=== PATIENT | female | born 1965 | race Caucasian/White ===

== ENCOUNTER 2016-04-08 19:28 | Emergency (ER) | payer BC ==
[~2016-04-08] VITALS: Ht 167.6 cm; Wt 72.6 kg
[~2016-04-08 19:28] MED LIST: ALPR1TAB2 PO; ALPR1TAB6 PO; CYAN10005 PO; D-ME118S2 PO; DIBU28OI RC; DICL100G24 TP; DOCU100T5 PO; ERYT1OIN6 PO; FENT1PAT91 TP; META800T21 PO; MULT1TAB52 PO; ONDA4TAB7 PO; ONDA8TAB12 PO; OXYC10TA PO; OXYC10TA32 PO; OXYC15TA60 PO; OXYC5TAB88 PO; PANT40TA3 PO; PANT40TA5 PO; POLY17PO3 PO; PRAM28.3 RC; PRED-220 PO; PRED5TAB19 PO; PROC10TA57 PO; SERT25TA PO; TEMA15CA6 PO; TEMA30CA PO; VENTOLIN HFA18 GM IH; ZOLP10TA PO
[2016-04-08 19:40] VITALS: BP 165/102
[2016-04-08] MEDS ORDERED: LORAZEPAM 2 MG/ML VIAL IV ONE (20:00)
[2016-04-08] MEDS ORDERED: IV NORMAL SALINE 1000ML BAG 1,000 ML IV ONE (20:30)
--- NOTE | 2016-04-08 21:03 | PHYS DOC ---
Past Medical History Past Medical History: Anxiety, Cancer, Other Additional Past Medical Histor: "HEART BLOCKAGES",SVT PT REPORTS CHEMO AND RADIATION R/O LUNG CA, ARRYTHMIA Past Surgical History: Angioplasty, Appendectomy, Cholecystectomy, Hysterectomy , Other Additional Past Surgical Histo: cardiac ablation, craniotomy,PART LEFT LUNG REMOVAL R/T CANCER Alcohol Use: None Drug Use: None Adult General Chief Complaint Chief Complaint: MECHANICAL FALL HPI HPI 51-year-old female with multiple medical problems states she's fallen a couple times over the last 2 days and has some left shoulder and left wrist pain. She also has some chronic pain when she exhales. She states it's not resolved with her OxyContin that she takes on a routine basis at home. [] Review of Systems Review of Systems Constitutional: Denies fever or chills [] Eyes: Denies change in visual acuity, redness, or eye pain [] HENT: Denies nasal congestion or sore throat [] Respiratory: Denies cough or shortness of breath [] Cardiovascular: No additional information not addressed in HPI [] GI: Denies abdominal pain, nausea, vomiting, bloody stools or diarrhea [] : Denies dysuria or hematuria [] Musculoskeletal: Per history of present illness [] Integument: Denies rash or skin lesions [] Neurologic: Denies headache, focal weakness or sensory changes [] Endocrine: Denies polyuria or polydipsia [] Current Medications Current Medications Current Medications Medications (Trade) Dose Ordered Sig/Kojo Start Time Stop Time Status Last Admin Dose Admin Lorazepam 2 mg 2 mg 1X ONCE 04/08/16 20:00 04/08/16 20:01 DC 04/08/16 20:11 2 MG Sodium Chloride (Iv Sodium Chloride 0.9% 1000ml Bag) 1,000 ml @ 1,000 mls/hr 1X ONCE 04/08/16 20:30 04/08/16 21:29 04/08/16 20:18 1,000 MLS/HR Allergies Allergies Allergies Coded Allergies Type Severity Reaction Last Updated Verified cyclobenzaprine Allergy Severe 11/26/14 Yes metoclopramide Adverse Reaction Severe tardive dyskinesia 11/26/14 Yes baclofen Adverse Reaction Intermediate hallucinations 11/26/14 Yes diphenhydramine Adverse Reaction Intermediate Palpitations, "hyperactivity" "heart races" 06/22/15 Yes Physical Exam Physical Exam Constitutional: Well developed, well nourished, no acute moderate distress, non- toxic appearance, pain is out of portion to her physical exam findings. [] HENT: Normocephalic, atraumatic, bilateral external ears normal, oropharynx moist, no oral exudates, nose normal. [] Eyes: PERRLA, EOMI, conjunctiva normal, no discharge. [] Neck: Normal range of motion, no tenderness, supple, no stridor. [] Cardiovascular:Heart rate regular rhythm, no murmur [] Lungs & Thorax: Bilateral breath sounds clear to auscultation [] Abdomen: Bowel sounds normal, soft, no tenderness, no masses, no pulsatile masses. [] Skin: Warm, dry, no erythema, no rash. [] Back: No tenderness, no CVA tenderness. [] Extremities: Left shoulder shows no abnormalities no deformities range of motion is limited secondary to pain. Left wrist is not swollen there is no deformity limited secondary to pain. [] Neurologic: Alert and oriented X 3, normal motor function, normal sensory function, no focal deficits noted. [] Psychologic: Extremely anxious and hyperventilating [] Current Patient Data Vital Signs Vital Signs Date Time Temp Pulse Resp B/P Pulse Ox O2 Delivery O2 Flow Rate FiO2 04/08/16 19:40 98.0 107 20 165/102 95 Room Air 98.0 EKG EKG [] Radiology/Procedures Radiology/Procedures [] Impressions: Left shoulder x-ray: Negative exam as interpreted by me Left wrist x-ray negative exam as interpreted by il Course & Med Decision Making Course & Med Decision Making Pertinent Labs and Imaging studies reviewed. (See chart for details) [ED course: Evaluation reveals an extremely anxious 51-year-old female with pain out of proportion to her physical exam findings. Her oxygen saturation on room air was mid 90s she was hyperventilating physical exam finding was essentially unremarkable initially she was given 2 mg of Ativan which did seem to calm her down some and then she was given a milligram of Dilaudid to help with her pain.] Patient is stable for discharge home Dragon Disclaimer Dragon Disclaimer This electronic medical record was generated, in whole or in part, using a voice recognition dictation system. Departure Departure Impression: Primary Impression: Anxiety Additional Impressions: Multiple falls Contusion of left shoulder Left wrist sprain Disposition: HOME, SELF-CARE Condition: IMPROVED Referrals: SARAH LOPEZ MD (PCP) Patient Instructions: Contusion, Fall Prevention and Home Safety, Pleurisy Additional Instructions: Thank you for allowing us to participate in your care today. Followup with your primary care physician in 3 days if your symptoms do not improve. Return to the emergency department you have any new or concerning findings. This should be evaluated by the primary care physician and any necessary consulting services for continued management within a few days after discharge. Return to emergency room if you have any new or concerning symptoms including but not limited to fever, chills, nausea, vomiting, intractable pain, any new rashes, chest pain, shortness of air, uncontrolled bleeding, difficulty breathing, and/or vision loss. You may have been prescribed medication that can change in your level of thinking and ability to operate machinery. These medications include hydrocodone and Ativan. Also, Benadryl has been known to do this as well. Be sure to check with your pharmacist and ask if the medications you've prescribed can affect your level of consciousness. I recommend not operating heavy machinery or driving while on medication such as these. Problem Qualifiers Additional Impressions: Contusion of left shoulder Encounter type: initial encounter Qualified Code: S40.012A - Contusion of left shoulder, initial encounter Left wrist sprain Encounter type: initial encounter Qualified Code: S63.502A - Unspecified sprain of left wrist, initial encounter LAURA CHOW DO Apr 08, 2016 21:03
[2016-04-08] MEDS ORDERED: HYDROMORPHONE 2 MG/ML VIAL. IV ONE (21:15)
--- NOTE | 2016-04-09 08:28 | RAD ---
Left shoulder, 3 views, 04/08/2016: History: Fall, pain No fracture or dislocation is identified. There is minimal degenerative change at the AC joint. Surgical clips are present left upper chest. A right-sided central venous catheter is in place. IMPRESSION: No acute bony abnormality is detected. Left wrist, 3 views, 04/08/2016: No acute fracture or dislocation is identified. There are mild degenerative changes at the wrist. There is mild diffuse soft tissue swelling.
[2016-04-10] MEDS ORDERED: OXYC30TA PO (18:25)
== END 2016-04-08 21:32 | disposition home or self-care (01) ==
LOC: ER 19:28
DX: S40.012A Contusion of left shoulder, initial encounter (principal); S63.502A Unspecified sprain of left wrist, initial encounter; F41.9 Anxiety disorder, unspecified; Z88.8 Allergy status to other drugs, medicaments and biological substances; W19.XXXA Unspecified fall, initial encounter; Y93.89 Activity, other specified; Y92.89 Other specified places as the place of occurrence of the external cause; Y99.8 Other external cause status
CPT/HCPCS: 73030; 73110; 96361; 96374; 96375; 99284; J1170; J2060; J7030

== ENCOUNTER 2016-06-06 06:54 | Day surgery (SDC) | payer BC ==
[~2016-06-06] VITALS: Ht 167.6 cm; Wt 66.2 kg
[~2016-06-06 06:54] MED LIST changes: +BUPIVACAINE MPF 0.5% 30 ML VIAL. ONE; +CEFAZOLIN 1GM IVPB FOR OMNI 50 ML IV PRN; +LIDOCAINE 1% 20 ML VIAL. ONE; +OXYC30TA PO
[2016-06-06] MEDS ORDERED: LIDOCAINE 1% 1 ML SYRINGE. ID PRN (07:00)
[2016-06-06] MEDS ORDERED: MORPHINE SULFATE 2 MG/ML DISP.SYRIN. IV PRN (07:00)
[2016-06-06] MEDS ORDERED: ONDANSETRON PF 4 MG/2 ML VIAL. IV PRN (07:00)
[2016-06-06] MEDS ORDERED: FENTANYL PF 100 MCG/2 ML VIAL. IV PRN (07:00)
[2016-06-06] MEDS ORDERED: PROCHLORPERAZINE 10 MG/2 ML VIAL. IV PRN (07:00)
[2016-06-06] MEDS ORDERED: IV RINGERS,LACTATED 1000ML 1,000 ML IV SCH (07:00)
--- NOTE | 2016-06-06 07:20 | DISCH ---
DISCHARGE INSTRUCTIONS Condition on Discharge Condition on Discharge: Stable Activity After Discharge Activity Instructions for Disc: Other, see below Bathing Instructions: Shower-keep dressing dry Weight Bearing Status after Di: Non weight bearing Diet after Discharge Diet after Discharge: Regular Wound Incision Care Wound/Incision Care: Ice to area for comfort, Keep wound/cast CDI, Keep wound elevated, Do not change dressing Contacting the DRReid after DC Call your doctor for: Concerns you may have Follow-Up Follow up with: Ramona Mei in 10-14 days Treatment/Equipment after DC Adaptive Equipment Issued: None MARQUES SLAUGHTER II, MD Jun 06, 2016 07:20
--- NOTE | 2016-06-06 07:21 | PDOC ---
BRIEF OPERATIVE NOTE Date: Jun 06, 2016 Pre-Op Diagnosis Malangulated closed L distal radius fracture Post-Op Diagnosis same Procedure Performed ORIF L fx Surgeon Nirmal Buckley Anesthesia Type: General Blood Loss 10mL Complications none MARQUES SLAUGHTER II, MD Jun 06, 2016 07:21
[2016-06-06] MEDS ORDERED: MIDAZOLAM HCL 2 MG/2 ML VIAL. ONE (07:25)
[2016-06-06] MEDS ORDERED: ONDANSETRON PF 4 MG/2 ML VIAL. ONE (07:25)
[2016-06-06] MEDS ORDERED: LIDOCAINE 2% 100 MG/5 ML DISP.SYRIN. ONE (07:25)
[2016-06-06] MEDS ORDERED: PROPOFOL 20 ML IV ONE (07:25)
[2016-06-06] MEDS ORDERED: DEXAMETHASONE SOD PHOS 20 MG/5 ML VIAL. ONE (07:25)
[2016-06-06] MEDS ORDERED: DESFLURANE 61 TO 120 MINUTES IH ONE (07:25)
[2016-06-06] MEDS ORDERED: FENTANYL PF 100 MCG/2 ML VIAL. ONE ×2 (07:26→08:33)
[2016-06-06] MEDS ORDERED: ESMOLOL 100 MG/10 ML VIAL. IV ONE (08:22)
[2016-06-06] MEDS: FENTANYL PF 100 MCG/2 ML VIAL. IV PRN ×4 (09:20→09:45)
[2016-06-06] MEDS ORDERED: ONDA4TAB10 SL (09:25)
[2016-06-06] MEDS: HYDROMORPHONE 2 MG/ML VIAL. IV PRN ×4 (09:26→10:15)
[2016-06-06] MEDS ORDERED: ACETAMINOPHEN INTRAVENOUS 100 ML IV PRN (09:45)
[2016-06-06] MEDS ORDERED: KETOROLAC TROMETHAMINE 30 MG/ML SYRINGE. IV PRN (09:45)
[2016-06-06] MEDS ORDERED: KETOROLAC TROMETHAMINE 30 MG/ML SYRINGE. ONE (09:50)
[2016-06-06] MEDS ORDERED: OXYCODONE IR 5 MG TABLET. PO ONE (10:00)
[2016-06-06 10:14] VITALS: BP 130/78
[2016-06-06] MEDS ORDERED: HEPARIN PF 500 UNIT/5 ML DISP.SYRIN. IV ONE (10:35)
[2016-06-06] MEDS ORDERED: HEPARIN PF 500 UNIT/5 ML DISP.SYRIN. IV PRN (11:15)
--- NOTE | 2016-06-06 11:54 | OP ---
DATE OF SURGERY: 06/06/2016 SURGEON: Jorge Slaughter MD. MANAGER DEVELOPMENTAL: Gloria Buckley. ANESTHESIA: General. PREOPERATIVE DIAGNOSIS: Malangulated closed left intraarticular distal radius fracture. POSTOPERATIVE DIAGNOSIS: Malangulated closed left intraarticular distal radius fracture. PROCEDURE PERFORMED: Open reduction and internal fixation of left distal radius fracture. TOURNIQUET TIME: 32 minutes. ESTIMATED BLOOD LOSS: 25 mL. COMPONENTS INSERTED: [employer] volar distal radius locking plate, standard width. COMPLICATIONS: None. REASON FOR PROCEDURE: The patient is a very pleasant 51-year-old female who sustained a fall onto an outstretched left upper extremity while roller skating with her grandchildren. She was seen and evaluated in our outpatient orthopedic surgery clinic, and I reviewed the imaging and exam findings and discussed the risks, benefits, and alternatives to surgery with her and she elected to proceed. DESCRIPTION OF PROCEDURE: The patient was greeted in the preoperative area by myself. Correct extremity was marked and verified. She was taken to the operative suite and antibiotics were started en route. Once in the OR, she was transferred gently supine to the OR table and secured to the bed with all pressure points padded and had a successful induction of general anesthesia. We then proceeded to place the tourniquet to her left upper arm and then prescrubbed her left upper extremity after removing the splint with chlorhexidine. We then proceeded to perform our usual sterile prep and draping. We then conducted a standard preoperative timeout. I then palpated and marked her radial artery and FCR tendon and made the skin incision in between these after exsanguinating the extremity with an Esmarch and insufflating the tourniquet to 250 mmHg. I dissected skin and subcutaneous tissue with tenotomies and cauterized bleeders with bipolar cautery. I identified the FCR tendon and incised her antebrachial fascia in line with the skin incision. I then bluntly dissected down to the pronator quadratus and used a needle tip electrocautery to transect this. I then used an elevator to remove the adherent soft tissue over her distal radius in anticipation of my plate application. I then performed a reduction maneuver consisting recreating the deformity, pulling longitudinal traction through digits 2 and 3 and direct pressure over the fracture fragment to reduce it. The C-arm confirmed a good fracture reduction under triplanar fluoroscopy. I then brought in my plate and sized and pinned this into place. I then placed two nonlocking screws into the distal fragment followed by filling the rest of the holes with locking screws. This opposed the plate to the fragment well. I then reduced the plate to the shaft which corrected some of the angulation again. I then secured the plate to the shaft with 2 nonlocking screws. I then took my final images confirming appropriate fracture reduction and hardware position without any articular violation. I then irrigated out the operative field then let the tourniquet down and cauterized a couple of bleeders with bipolar cautery. I then reapproximated the pronator quadratus with simple interrupted 2-0 Vicryl. Inverted interrupted 2-0 was used for subcutaneous tissue and 2-0 nylon in mattress fashion was used for skin. I then injected approximately 7 mL of local anesthetic mixture into the epifanio-incisional area ensuring extravascular placement. I then cleansed and dried the arm, placed Steri-Strips, Xeroform gauze, and sterile cast padding. I then fashioned a sugar-tong splint that was well padded and held the mold while it set. Prior to completion of wound closure, all counts were reported correct x 2. No complications. The patient tolerated the surgery well. At the conclusion of surgery, she was awakened from anesthesia, transferred gently supine to the recovery room cart and taken to PACU in stable and extubated condition. Postop plan is for be nonweightbearing x 6 weeks. She will remain in the splint for 2 weeks until we see her in clinic. JORGE SLAUGHTER MD DR: ADRYAN/lida JOB#: [id number] / [id number] CLEMENTINE
== END 2016-06-06 11:12 | disposition home or self-care (01) ==
LOC: SURG 06:54
PROVIDERS: ATTEND Orthopaedic Surgery Sports Medicine
DX: S52.572B Other intraarticular fracture of lower end of left radius, initial encounter for open fracture type I or II (principal); I48.91 Unspecified atrial fibrillation; J40 Bronchitis, not specified as acute or chronic; F41.9 Anxiety disorder, unspecified; F32.9 Major depressive disorder, single episode, unspecified; Z51.11 Encounter for antineoplastic chemotherapy; Z51.0 Encounter for antineoplastic radiation therapy; Z90.710 Acquired absence of both cervix and uterus; Z90.721 Acquired absence of ovaries, unilateral; Z90.49 Acquired absence of other specified parts of digestive tract; W19.XXXA Unspecified fall, initial encounter; Y93.51 Activity, roller skating (inline) and skateboarding; Y92.9 Unspecified place or not applicable; Y99.9 Unspecified external cause status
CPT/HCPCS: 25608; 76000; C1713; J0131; J0690; J1100; J1170; J1885; J2250; J2405; J2704; J3010; J3490; J0780

== ENCOUNTER 2016-06-27 15:57 | Inpatient (IN) | payer BC ==
[~2016-06-27] VITALS: Ht 167.6 cm; Wt 69.5 kg
[~2016-06-27 15:57] MED LIST changes: -BUPIVACAINE MPF 0.5% 30 ML VIAL. ONE; -CEFAZOLIN 1GM IVPB FOR OMNI 50 ML IV PRN; -LIDOCAINE 1% 20 ML VIAL. ONE; +ONDA4TAB10 SL
[2016-06-27] MEDS ORDERED: FENTANYL PF 100 MCG/2 ML VIAL. IV ONE (16:45)
[2016-06-27] MEDS ORDERED: CEFTRIAXONE SODIUM 1 GM in IV NORMAL SALINE 50ML 50 ML IV SCH (17:00)
[2016-06-27] MEDS: PHENAZOPYRIDINE 200 MG TABLET. PO PRN (17:22)
[2016-06-27] MEDS ORDERED: FENTANYL STANDARD PCA 30 ML IV PRN (17:30)
[2016-06-27] MEDS ORDERED: ZOLP10TA PO (17:38)
[2016-06-27 19:00] VITALS: BP 118/78
[2016-06-27] MEDS: IV NORMAL SALINE 1000ML BAG 1,000 ML IV SCH (19:01)
[2016-06-27] MEDS ORDERED: ALPRAZOLAM 1 MG TABLET PO PRN (21:30)
[2016-06-27] MEDS: ZOLPIDEM 5 MG TABLET. PO PRN (21:51)
[2016-06-27] MEDS: OXYCODONE IR 30 MG TABLET. PO PRN (21:52)
[2016-06-27 22:39] LABS: BILIRUBIN,URINE NEGATIVE (NEG); GLUCOSE,URINE NEGATIVE (NEG); PH,URINE 5.5; PROTEIN,URINE NEGATIVE (NEG-TRACE)
[2016-06-27 22:46] LABS: BACTERIA,URINE FEW /HPF (0-FEW); RBC,URINE 0 /HPF (0-2); SQUAMOUS EPITHELIAL CELL,UR OCC /LPF; WBC,URINE >40 /HPF (0-4)
[2016-06-27 23:00] VITALS: BP 95/61
--- NOTE | 2016-06-28 01:33 | HP ---
ADMIT DATE: 06/27/2016 HISTORY OF PRESENT ILLNESS: This is a 51-year-old white female who was seen in the office and she called saying that she is having davon hematuria. Her urine was bright pink or light red. She complained of severe pain. She lay on the examining table morning with pain, saying that she has such severe pain in her vaginal area. She was not sure whether the blood was from the urine or the vagina. She stated that she would have to void frequently and there would be blood on it. However, she has had a hysterectomy. A week ago, she had called saying that she has having urinary frequency. I gave her three days of Cipro 500 mg twice a day. She did not come to the office and no urinalysis or urine culture was carried out. This patient has had a very complex history. She has had carcinoma of the lung. She has had a lobectomy. 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 She was evaluated by Dr. Kitchen recently and found not to have any cancer. She has undergone chemotherapy. For some years, she has had what she calls pelvic pain. I am not quite sure what it is, but the previous physician had told her that she has pelvic pain and had on narcotics. Dr. Norm Leyva was seen her in these narcotics have been continued. However, the dose has been increased from 10 mg of oxycodone to now 30 mg of oxycodone. Despite taking the 30 mg every four hours, she ____ morning and pain in my office. She has had atrial tachycardia and has had an ablation. She has had no coronary artery disease. She has had myocardial perfusion. Imaging studies that have been normal and the left ventricular systolic function has been normal. Recently, she had a fracture of her wrist. She had to have a cast placed. She did not come to me for any more pain medications. I am not sure whether orthopedic surgeon gave her any more. She has never smoked. She does not take alcohol. PRESENT MEDICATIONS: 1. Alprazolam 1 mg q.6h. p.r.n. 2. Colace. 3. Zofran. 4. Oxycodone 30 mg every 4 hours. 5. Ambien 5 mg at night. PHYSICAL EXAMINATION: GENERAL: She was in pain and complained of severe pain despite IV fentanyl. VITAL SIGNS: The heart rate was 90 per minute and regular. The blood pressure is 120/80. The oxygen saturation on room air was 92%. LUNGS: Clear. HEART: The heart sounds are normal with no murmur or gallop. ABDOMEN: Soft. EXTREMITIES: There is no edema of the legs. IMPRESSION: 1. Hematuria. 2. Severe dysuria. 3. Probable low tolerance for pain. 4. History of pelvic pain. 5. History of carcinoma of the lung, cancer free for now. She will be given a fentanyl drip. Dr. Norm Leyva see her for the pain. She will be given Pyridium. She will be treated for the urinary tract infection with intravenous antibiotics. Urine culture will be obtained. We will also request a consultation from Urology. SARAH LOPEZ MD DR: MORRIS/lida JOB#: [id number] / [id number]
[2016-06-28] MEDS: OXYCODONE IR 30 MG TABLET. PO PRN ×5 (02:16→21:16)
[2016-06-28 03:06] VITALS: BP 106/72
[2016-06-28] MEDS: ONDANSETRON ODT 4 MG TAB.RAPDIS. PO PRN ×3 (04:23→20:15)
[2016-06-28] MEDS: DOCUSATE SODIUM 100 MG CAPSULE. PO SCH ×2 (05:27→17:51)
[2016-06-28] MEDS: PHENAZOPYRIDINE 200 MG TABLET. PO PRN ×2 (06:13→16:51)
[2016-06-28] MEDS: IV NORMAL SALINE 1000ML BAG 1,000 ML IV SCH ×2 (06:16→20:16)
--- NOTE | 2016-06-28 07:17 | PDOC ---
Provider Note Provider Note Urology: c/c gross hematuria Chart reviewed Plan: renal ultrasound ordered (CT-scan 04-10 show normal kidneys) will see patient later this afternoon after surgery PEDRO BLOOM DO Jun 28, 2016 07:17
[2016-06-28 07:50] VITALS: BP 99/58
[2016-06-28] MEDS ORDERED: ACETAMINOPHEN 325 MG TABLET. PO PRN (08:30)
[2016-06-28 09:00] VITALS: BP 92/64
[2016-06-28] MEDS ORDERED: FENTANYL PF 100 MCG/2 ML VIAL. IV ONE (09:00)
[2016-06-28] MEDS ORDERED: VANCOMYCIN PER PHARMACY MC PRN (09:00)
[2016-06-28] MEDS ORDERED: METOPROLOL TART IMMED RELEASE 25 MG TABLET. PO ONE (09:00)
--- NOTE | 2016-06-28 09:10 | PDOC ---
Infectious Disease Note ROS ROS GEN: Denies fevers, chills, sweats HEENT: Denies blurred vision, sore throat CV: Denies chest pain RESP: Denies shortness of air, cough GI: Denies n/v/d NEURO: Denies confusion, dizziness MSK: Denies weakness, joint pain/swelling Vital Sign Vital Signs Vital Signs Date Time Temp Pulse Resp B/P Pulse Ox O2 Delivery O2 Flow Rate FiO2 06/28/16 07:10 93 Room Air 06/28/16 03:06 98.2 113 20 106/72 98.2 Physical Exam PHYSICAL EXAM GENERAL: NAD, Alert HEENT: PERRL, OC/OP NECK: Supple, no JVD, no LN LUNGS: Clear HEART: S1S2, no gallop, no murmur ABD: Soft, NT, no organomegaly, no rebound EXT: No edema, no cyanosis BUSINESS APPLICATIONS SPECIALIST: Alert, oriented x 3, no focal neurologic deficit SKIN: No rash IV: ok Labs Lab Laboratory Tests Test 06/27/16 21:30 Urine Collection Type Unknown Urine Color [place] Urine Clarity Clear Urine pH 5.5 Urine Specific [place] <=1.005 Urine Protein Negativemg/dL (NEG-TRACE) Urine Glucose (UA) Negativemg/dL (NEG) Urine Ketones (Stick) Negativemg/dL (NEG) Urine Blood Small (NEG) Urine Nitrite (NEG) Urine Bilirubin Negative (NEG) Urine Urobilinogen Dipstick 1.0mg/dL (0.2 mg/dL) Urine Leukocyte Esterase Large (NEG) Urine RBC 0/HPF (0-2) Urine WBC >40/HPF (0-4) Urine Squamous Epithelial Cells Occ/LPF Urine Bacteria Few/HPF (0-FEW) Objective Assessment ? Sepsis Fever 102 Sinus congestion Hematuria ? failed Cipro Back pain N/V Plan Plan of Care Stat CBC/BMP/Lactic Flu screen CXR Blood cults ordered Add Meropenem/Vanc Azithromycin times one F/u labs/urine cult Await CT scan D/w # [id number] HERIBERTO TORRES MD Jun 28, 2016 09:10
[2016-06-28 09:14] LABS: BASO # 0.1 x10^3/uL (0.0-0.2); BASO % 0 % (0-3); EOS % 1 % (0-3); HEMATOCRIT 40.8 % (36.0-47.0); HEMOGLOBIN 13.1 g/dL (12.0-15.5); LYMPH # 1.3 x10^3/uL (1.0-4.8); LYMPH % 11 % (24-48); MEAN CORPUSCULAR HEMOGLOBIN 30 pg (25-35); MEAN CORPUSCULAR HGB CONC 32 g/dL (31-37); MEAN CORPUSCULAR VOLUME 92 fL (79-100); MONO % 7 % (0-9); NEUT % 81 % (31-73); PLATELET COUNT 209 x10^3/uL (140-400); RED BLOOD COUNT 4.42 x10^6/uL (3.50-5.40); RED CELL DISTRIBUTION WIDTH 13.2 % (11.5-14.5); WHITE BLOOD COUNT 11.9 x10^3/uL (4.0-11.0)
[2016-06-28 09:24] LABS: CALCIUM 8.5 mg/dL (8.5-10.1); CREATININE 0.7 mg/dL (0.6-1.0); GFR 87.9; POTASSIUM 4.8 mmol/L (3.5-5.1)
[2016-06-28] MEDS ORDERED: AZITHRMYCN 500MG IVPB FOR OMNI 250 ML IV ONE (09:30)
[2016-06-28] MEDS ORDERED: VANCOMYCIN 2 GM in IV NORMAL SALINE 500ML BAG 500 ML IV ONE (10:00)
[2016-06-28] MEDS: MEROPENEM 500 MG in IV NORMAL SALINE 50ML 50 ML IV SCH ×3 (10:19→22:53)
[2016-06-28 10:30] VITALS: BP 86/59
[2016-06-28 10:57] LABS: OBC FLU VALID
--- NOTE | 2016-06-28 11:00 | RAD ---
CT abdomen and pelvis without contrast History: Pelvic pain, hematuria. History of lung cancer. History of pelvic fracture. Comparison: CT abdomen pelvis 04/11/2016. Technique: Helical CT of the abdomen and pelvis was performed without intravenous or oral contrast. Axial, sagittal, and coronal reconstructions were obtained. One or more of the following individualized dose reduction techniques were utilized for the study: Automated exposure control Adjustment of mA and/or kV according to patient's size Use of iterative reconstruction technique. Findings: Evaluation of the solid organs is limited by lack of intravenous contrast. Evaluation of enteric structures may be limited by lack of oral contrast. Images of the lower chest demonstrate mild nonspecific groundglass opacity and mild areas of consolidation involving the left lower lobe. There is also linear consolidation involving the lingula which is favored to be atelectasis. Emphysema is seen. Liver, spleen, pancreas, and left adrenal gland are unremarkable. Right adrenal gland demonstrates a 2.0 cm a low-density lesion with Hounsfield units of -20, favored to represent a lipid rich adenoma. Aortic atherosclerosis is seen. Gallbladder is absent. Surgical clips are seen in left upper quadrant inferior to the spleen and adjacent to the splenic flexure. There is no evidence of bowel obstruction. No free air or free fluid is identified in the abdomen or pelvis. Appendix is not confidently identified, but no inflammation is seen adjacent to the cecum. The urinary bladder appears somewhat indistinct. There may be surrounding fat stranding. Evaluation of bladder wall is limited. Uterus is absent. There is evidence of a trace amount of free fluid in the posterior right hemipelvis. Bilateral kidneys and ureters are free of stone or obstruction. Limbus vertebra is seen at L4. Sacroplasty cement is seen. No suspicious osseous lesions are seen. Impression: 1. Emphysematous changes of lungs. Left lower lobe demonstrates nonspecific groundglass opacity and a mild amount consolidation, could be atelectasis versus airspace disease. Recommend correlation with respiratory symptoms. 2. No evidence of urinary stone. There is an irregular appearance to the urinary bladder, nonspecific. Consider cystitis. If cystitis is insufficient explanation for patient's hematuria and if there is concern for urinary mass, then CT urography could be performed. 3. Trace of free fluid in the right hemipelvis, abnormal in a female who has had previous total hysterectomy. Cause is not identified, however. 4. Bilateral sacroplasty. 5. Right adrenal adenoma.
[2016-06-28] MEDS ORDERED: NON FORMULARY ITEM (Zolpidem Tartrate (Ambien) 10 MG) PO PRN (14:15)
[2016-06-28] MEDS ORDERED: ONDANSETRON ODT 4 MG TAB.RAPDIS. PO PRN (14:15)
[2016-06-28] MEDS ORDERED: ACETAMINOPHEN 500 MG TABLET PO PRN (14:15)
[2016-06-28] MEDS ORDERED: ALPRAZOLAM 1 MG TABLET PO PRN (14:15)
[2016-06-28] MEDS ORDERED: OXYCODONE IR 30 MG TABLET. PO PRN (14:15)
[2016-06-28 14:30] VITALS: BP 91/62
--- NOTE | 2016-06-28 14:48 | PDOC ---
SUBJECTIVE Subjective Pelvic pain OBJECTIVE Objective Pt. C/O pelvic pain and hematuria Vital Signs Vital Signs Date Time Temp Pulse Resp B/P Pulse Ox O2 Delivery O2 Flow Rate FiO2 06/28/16 12:29 Nasal Cannula 3.0 06/28/16 11:10 94 Nasal Cannula 3.0 06/28/16 10:30 99.0 102 20 86/59 94 Nasal Cannula 3.0 99.0 06/28/16 10:04 92 Nasal Cannula 3.0 06/28/16 09:36 122 20 93 Nasal Cannula 3.0 06/28/16 09:00 125 20 92/64 88 Room Air 06/28/16 08:40 Room Air 06/28/16 08:15 Room Air 06/28/16 07:50 102.2 132 20 99/58 91 Room Air 102.2 06/28/16 07:10 93 06/28/16 06:01 93 Room Air 06/28/16 03:06 98.2 113 20 106/72 93 Room Air 98.2 06/28/16 02:16 93 Room Air 06/27/16 23:00 98.7 116 20 95/61 91 Room Air 98.7 06/27/16 21:52 92 Room Air 06/27/16 20:00 Room Air 06/27/16 19:36 92 Room Air 06/27/16 19:06 Room Air 06/27/16 19:00 97.5 90 20 118/78 91 Nasal Cannula 97.5 06/27/16 18:13 Room Air 06/27/16 17:52 Room Air 06/27/16 17:22 Room Air I & O Intake and Output 06/28/16 07:00 Intake Total 890 ml Output Total 850 ml Balance 40 ml Intake Oral 840 ml IV Total 50 ml Output Urine Total 850 ml # Voids 1 ASSESSMENT/PLAN Assessment/Plan Pt. with high fever and hematuria, pelvic pain-chronic. Taking 30mg oxycodone q 4hrs at home per pt. report [employer] fentanyl IV- consider change to 10mcg q 15 min(40mcg/hr) - wean as tolerated Problems: COMMENT Lab Laboratory Tests Test 06/27/16 21:30 06/28/16 08:50 06/28/16 09:05 06/28/16 09:45 Urine Collection Type Unknown Urine Color [place] Urine Clarity Clear Urine pH 5.5 Urine Specific [place] <=1.005 Urine Protein Negativemg/dL (NEG-TRACE) Urine Glucose (UA) Negativemg/dL (NEG) Urine Ketones (Stick) Negativemg/dL (NEG) Urine Blood Small (NEG) Urine Nitrite (NEG) Urine Bilirubin Negative (NEG) Urine Urobilinogen Dipstick 1.0mg/dL (0.2 mg/dL) Urine Leukocyte Esterase Large (NEG) Urine RBC 0/HPF (0-2) Urine WBC >40/HPF (0-4) Urine Squamous Epithelial Cells Occ/LPF Urine Bacteria Few/HPF (0-FEW) White Blood Count 11.9x10^3/uL (4.0-11.0) Red Blood Count 4.42x10^6/uL (3.50-5.40) Hemoglobin 13.1g/dL (12.0-15.5) Hematocrit 40.8% (36.0-47.0) Mean Corpuscular Volume 92fL (79-100) Mean Corpuscular Hemoglobin 30pg (25-35) Mean Corpuscular Hemoglobin Concent 32g/dL (31-37) Red Cell Distribution Width 13.2% (11.5-14.5) Platelet Count 209x10^3/uL (140-400) Neutrophils (%) (Auto) 81% (31-73) Lymphocytes (%) (Auto) 11% (24-48) Monocytes (%) (Auto) 7% (0-9) Eosinophils (%) (Auto) 1% (0-3) Basophils (%) (Auto) 0% (0-3) Neutrophils # (Auto) 9.7x10^3uL (1.8-7.7) Lymphocytes # (Auto) 1.3x10^3/uL (1.0-4.8) Monocytes # (Auto) 0.8x10^3/uL (0.0-1.1) Eosinophils # (Auto) 0.1x10^3/uL (0.0-0.7) Basophils # (Auto) 0.1x10^3/uL (0.0-0.2) Sodium Level 141mmol/L (136-145) Potassium Level 4.8mmol/L (3.5-5.1) Chloride Level 105mmol/L (98-107) Carbon Dioxide Level 29mmol/L (21-32) Anion Gap 7 (6-14) Blood Urea Nitrogen 6mg/dL (7-20) Creatinine 0.7mg/dL (0.6-1.0) Estimated GFR (Cockcroft-Gault) 87.9 Glucose Level 130mg/dL (70-99) Calcium Level 8.5mg/dL (8.5-10.1) Lactic Acid Level 2.1mmol/L (0.4-2.0) Influenza Type A Antigen Negative (NEGATIVE) Influenza Type B Antigen Negative (NEGATIVE) DAVID FLOOD MD Jun 28, 2016 14:48
--- NOTE | 2016-06-28 14:50 | PDOC2 ---
CONSULT Date of Consult Date of Consult DATE: 06/28/16 TIME: 14:34 Reason for Consult Reason for Consult: IM co mx Referring Physician Referring Physician: Keya Identification/Chief Complaint Chief Complaint pain pelvic area, chronic pain issues, gross hematuria History of Present Illness Reason for Visit: 51 y.o Female admitted for gross hematuria with pelvic pain, CHronic hx of pain , PAin mx on board. Urology likewise on board, CT scan does not show any stones , but emphysematous changes (hx of lung CA s/p lobectomy), possibly cystitis ( given irrgeular appearance of bladder wall), trace pelvic fluid with evidence of hysterrectomy, She was started on FEntanyl COMPRESSED GASES TESTER pump last night but only getting 10mcgs in 30 mins and pain is not adequately controlled. Pt actually ( per relay of staff), might even prefer pushes rather than constant gtt. Pt just was wheeled out for sono, to further eval the gross hematuria, UTI shows florid UTI, ID on case, lactate is mildly elevated at 2.1, WBC 11.9, flu is neg. BP on low side, also needed some O2 support while on COMPRESSED GASES TESTER - Past Medical History Cardiovascular: AFIB Pulmonary: Bronchitis CENTRAL NERVOUS SYSTEM: Other GI: Other Heme/Onc: Cancer Psych: Anxiety, Depression Musculoskeletal: Other Past Surgical History Past Surgical History: Appendectomy, Cholecystectomy, Tonsillectomy, Hysterectomy, Other (lobectomy for lung CA, adrenalectomy (metastatic spread)) Family History Family History: Other Social History Quit ALCOHOL: none Drugs: None Lives: with Family Current Medications Current Medications Current Medications Fentanyl Citrate (Fentanyl 2ml Vial) 50 mcg 1X ONCE IV Last administered on 17:22; Start 06/27/16 at 16:45; Stop 06/27/16 at 16:46; Status DC Phenazopyridine HCl 200 mg 200 mg PRN Q6HRS PRN PO URINARY PAIN Last administered on 06/28/16 06:13; Start 06/27/16 at 16:45 Ceftriaxone Sodium 1 gm/ Sodium Chloride 50 ml @ 100 mls/hr Q24H IV Last administered on 06/27/16 17:33; Start 06/27/16 at 17:00; Stop 06/28/16 at 08:58; Status DC Fentanyl Citrate 30 ml @ 0 mls/hr CONT PRN PRN IV PROTOCOL Last administered on 06/27/16 19:06; Start 06/27/16 at 17:30 Sodium Chloride (Iv Sodium Chloride 0.9% 1000ml Bag) 1,000 ml @ 100 mls/hr Q10H IV Last administered on 06/28/16 06:16; Start 06/27/16 at 18:45 Alprazolam (Xanax) 1 mg PRN Q6HRS PRN PO ANXIETY / AGITATION Last administered on 06/28/16 04:23; Start 06/27/16 at 21:30 Docusate Sodium (Colace) 100 mg [id number] PO ; Start 06/28/16 at 07:00 Ondansetron HCl (Zofran Odt) 8 mg PRN Q6HRS PRN PO NAUSEA/VOMITING Last administered on 06/28/16 08:39; Start 06/27/16 at 21:30 Zolpidem Tartrate (Ambien) 5 mg PRN QHS PRN PO INSOMNIA, MAY REPEAT IN 1HR Last administered on 06/27/16 21:51; Start 06/27/16 at 21:30 Oxycodone HCl (Roxicodone) 30 mg PRN Q4HRS PRN PO PAIN Last administered on 06/28 11:10; Start 06/27/16 at 21:30 Fentanyl Citrate (Fentanyl 2ml Vial) 50 mcg 1X ONCE IV Last administered on 08:40; Start 06/28/16 at 09:00; Stop 06/28/16 at 09:01; Status DC Metoprolol Tartrate (Lopressor) 25 mg 1X ONCE PO ; Start 06/28/16 at 09:00; Stop 06/28/16 at 09:01; Status DC Acetaminophen (Tylenol) 650 mg PRN Q6HRS PRN PO MILD PAIN / TEMP; Start at 08:30 Vancomycin HCl 1 each 1 each PRN DAILY PRN MC SEE COMMENTS Last administered on 06/28/16 13:25; Start 06/28/16 at 09:00; Stop 06/28/16 at 14:12; Status DC Meropenem 500 mg/ Sodium Chloride 50 ml @ 100 mls/hr Q6HRS IV Last administered on 06/28/16 10:19; Start 06/28/16 at 09:30 Azithromycin 250 ml @ 250 mls/hr 1X ONCE IV Last administered on 06/28/16t 11: 13; Start 06/28/16 at 09:30; Stop 06/28/16 at 10:29; Status DC Vancomycin HCl/ Sodium Chloride (Iv Sodium Chloride 0.9% 500ml Bag) 500 ml @ 250 mls/hr 1X ONCE IV Last administered on 06/28/16t 12:29; Start 06/28/16 at 10 :00; Stop 06/28/16 at 11:59; Status DC Vancomycin HCl 1 each 1 each 1X ONCE MC ; Start 06/29/16 at 23:30; Stop 06/29/16 at 23:30; Status DC Vancomycin HCl/ Sodium Chloride (Iv Sodium Chloride 0.9% 250ml) 250 ml @ 166.667 mls/hr Q12H IV ; Start 06/29/16 at 00:00; Stop 06/29/16 at 00:00; Status DC Acetaminophen (Tylenol) 500 mg PRN Q6HRS PRN PO MILD PAIN / TEMP; Start at 14:15 Linezolid (Zyvox) 600 mg BID PO ; Start 06/28/16 at 14:30 Alprazolam (Xanax) 1 mg PRN QID PRN PO ANXIETY / AGITATION; Start 06/28/16 at 14 :15 Ondansetron HCl (Zofran Odt) 4 mg PRN Q8HRS PRN PO nausea; Start 06/28/16 at 14: 15 Oxycodone HCl (Roxicodone) 15 mg PRN Q4HRS PRN PO PAIN; Start 06/28/16 at 14:15 Docusate Sodium (Colace) 200 mg PRN BID PRN PO CONSTIPATION; Start 06/28/16 at 21:00 Non-Formulary Medication 10 mg HS PRN PO INSOMNIA; Start 06/28/16 at 14:15; Status UNV Active Scripts Active Reported Ambien (Zolpidem Tartrate) 10 Mg Tablet 10 Mg PO HS PRN Zofran Odt (Ondansetron) 4 Mg Tab.rapdis 1 Tab SL Q8HRS Oxycodone Hcl 30 Mg Tablet 15 Mg PO PRN Q4HRS PRN Docusate Sodium 100 Mg Tablet 200 Mg PO BID PRN Alprazolam 1 Mg Tablet 1 Tab PO QID PRN Allergies Allergies: Coded Allergies: cyclobenzaprine (Verified Allergy, Severe, 06/06/16) dizziness, upset stomach, nightmares, sweats metoclopramide (Verified Adverse Reaction, Severe, tardive dyskinesia, ) baclofen (Verified Adverse Reaction, Intermediate, hallucinations, 06/06/16 ) diphenhydramine (Verified Adverse Reaction, Intermediate, Palpitations, "hyperactivity" "heart races", 06/06/16) ROS Review of System pelvic pain, abd pain, no emesis, change in BM, gross hematuria Physical Exam General: Alert, Oriented X3, Cooperative, No acute distress HEENT: Atraumatic, PERRLA Lungs: Clear to auscultation, Normal air movement Heart: Regular rate, Normal S1, Normal S2, No murmurs Abdomen: Normal bowel sounds, Soft, No tenderness Extremities: No clubbing, No cyanosis, No edema, Normal pulses, No tenderness/ swelling Skin: No rashes, No breakdown Neuro: Normal gait, Normal speech, Normal tone, Sensation intact, Reflexes 2+ Psych/Mental Status: Mental status NL, Mood NL MUSCULOSKELETAL: No joint tenderness Vitals VITALS Vital Signs Date Time Temp Pulse Resp B/P Pulse Ox O2 Delivery O2 Flow Rate FiO2 06/28/16 12:29 Nasal Cannula 3.0 06/28/16 11:10 94 06/28/16 10:30 99.0 102 20 86/59 99.0 Labs Labs Laboratory Tests Test 06/27/16 21:30 06/28/16 08:50 06/28/16 09:05 06/28/16 09:45 Urine Collection Type Unknown Urine Color [place] Urine Clarity Clear Urine pH 5.5 Urine Specific [place] <=1.005 Urine Protein Negativemg/dL (NEG-TRACE) Urine Glucose (UA) Negativemg/dL (NEG) Urine Ketones (Stick) Negativemg/dL (NEG) Urine Blood Small (NEG) Urine Nitrite (NEG) Urine Bilirubin Negative (NEG) Urine Urobilinogen Dipstick 1.0mg/dL (0.2 mg/dL) Urine Leukocyte Esterase Large (NEG) Urine RBC 0/HPF (0-2) Urine WBC >40/HPF (0-4) Urine Squamous Epithelial Cells Occ/LPF Urine Bacteria Few/HPF (0-FEW) White Blood Count 11.9x10^3/uL (4.0-11.0) Red Blood Count 4.42x10^6/uL (3.50-5.40) Hemoglobin 13.1g/dL (12.0-15.5) Hematocrit 40.8% (36.0-47.0) Mean Corpuscular Volume 92fL (79-100) Mean Corpuscular Hemoglobin 30pg (25-35) Mean Corpuscular Hemoglobin Concent 32g/dL (31-37) Red Cell Distribution Width 13.2% (11.5-14.5) Platelet Count 209x10^3/uL (140-400) Neutrophils (%) (Auto) 81% (31-73) Lymphocytes (%) (Auto) 11% (24-48) Monocytes (%) (Auto) 7% (0-9) Eosinophils (%) (Auto) 1% (0-3) Basophils (%) (Auto) 0% (0-3) Neutrophils # (Auto) 9.7x10^3uL (1.8-7.7) Lymphocytes # (Auto) 1.3x10^3/uL (1.0-4.8) Monocytes # (Auto) 0.8x10^3/uL (0.0-1.1) Eosinophils # (Auto) 0.1x10^3/uL (0.0-0.7) Basophils # (Auto) 0.1x10^3/uL (0.0-0.2) Sodium Level 141mmol/L (136-145) Potassium Level 4.8mmol/L (3.5-5.1) Chloride Level 105mmol/L (98-107) Carbon Dioxide Level 29mmol/L (21-32) Anion Gap 7 (6-14) Blood Urea Nitrogen 6mg/dL (7-20) Creatinine 0.7mg/dL (0.6-1.0) Estimated GFR (Cockcroft-Gault) 87.9 Glucose Level 130mg/dL (70-99) Calcium Level 8.5mg/dL (8.5-10.1) Lactic Acid Level 2.1mmol/L (0.4-2.0) Influenza Type A Antigen Negative (NEGATIVE) Influenza Type B Antigen Negative (NEGATIVE) Laboratory Tests Test 06/27/16 21:30 06/28/16 08:50 06/28/16 09:05 06/28/16 09:45 Urine Collection Type Unknown Urine Color [place] Urine Clarity Clear Urine pH 5.5 Urine Specific [place] <=1.005 Urine Protein Negativemg/dL (NEG-TRACE) Urine Glucose (UA) Negativemg/dL (NEG) Urine Ketones (Stick) Negativemg/dL (NEG) Urine Blood Small (NEG) Urine Nitrite (NEG) Urine Bilirubin Negative (NEG) Urine Urobilinogen Dipstick 1.0mg/dL (0.2 mg/dL) Urine Leukocyte Esterase Large (NEG) Urine RBC 0/HPF (0-2) Urine WBC >40/HPF (0-4) Urine Squamous Epithelial Cells Occ/LPF Urine Bacteria Few/HPF (0-FEW) White Blood Count 11.9x10^3/uL (4.0-11.0) Red Blood Count 4.42x10^6/uL (3.50-5.40) Hemoglobin 13.1g/dL (12.0-15.5) Hematocrit 40.8% (36.0-47.0) Mean Corpuscular Volume 92fL (79-100) Mean Corpuscular Hemoglobin 30pg (25-35) Mean Corpuscular Hemoglobin Concent 32g/dL (31-37) Red Cell Distribution Width 13.2% (11.5-14.5) Platelet Count 209x10^3/uL (140-400) Neutrophils (%) (Auto) 81% (31-73) Lymphocytes (%) (Auto) 11% (24-48) Monocytes (%) (Auto) 7% (0-9) Eosinophils (%) (Auto) 1% (0-3) Basophils (%) (Auto) 0% (0-3) Neutrophils # (Auto) 9.7x10^3uL (1.8-7.7) Lymphocytes # (Auto) 1.3x10^3/uL (1.0-4.8) Monocytes # (Auto) 0.8x10^3/uL (0.0-1.1) Eosinophils # (Auto) 0.1x10^3/uL (0.0-0.7) Basophils # (Auto) 0.1x10^3/uL (0.0-0.2) Sodium Level 141mmol/L (136-145) Potassium Level 4.8mmol/L (3.5-5.1) Chloride Level 105mmol/L (98-107) Carbon Dioxide Level 29mmol/L (21-32) Anion Gap 7 (6-14) Blood Urea Nitrogen 6mg/dL (7-20) Creatinine 0.7mg/dL (0.6-1.0) Estimated GFR (Cockcroft-Gault) 87.9 Glucose Level 130mg/dL (70-99) Calcium Level 8.5mg/dL (8.5-10.1) Lactic Acid Level 2.1mmol/L (0.4-2.0) Influenza Type A Antigen Negative (NEGATIVE) Influenza Type B Antigen Negative (NEGATIVE) Assessment/Plan Assessment/Plan 1. GRoss hematuria 2. Pelvic pain 3. Acute on chronic pain 4. UTI, SIRS POA, no sepsis 5. Elevated lactate, flu negative, leukocytosis 6. Hx lung CA with lobectomy 7. 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 Emphysematous lung changes 9. Possibly cystitis 10. Small amt pelvic fluid PLAn: REsume home meds including Oxy IR Would lean towards doing fentanyl pushes instead of gtt simone given hypoxia and low bP O2 support prn Await US results Follow pain mx and urology recs HH dennise IVF inc to 100cc.hr given hypotension Will follow along FREEDOM Thomas RN, MD Jun 28, 2016 14:50
[2016-06-28] MEDS: FENTANYL PF 100 MCG/2 ML VIAL. IV PRN ×3 (15:19→23:45)
[2016-06-28] MEDS: LINEZOLID 600 MG TABLET PO SCH ×2 (15:21→20:15)
--- NOTE | 2016-06-28 15:21 | RAD ---
Exam: PA and lateral chest radiograph History: Fever, cough, congestion. Comparison: 04/10/2016. Findings: Cardiomediastinal silhouette is within normal limits for size. Mild patchy density is seen involving the left lung base. No pleural effusion is seen. Emphysematous changes of lungs are seen. Right chest port and catheter are noted. Impression: 1. Mild left basilar density, could be atelectasis versus developing airspace disease. 2. Emphysema.
--- NOTE | 2016-06-28 15:33 | RAD ---
Renal ultrasound, 06/28/2016: History: Severe flank pain with hematuria The right kidney measures 10.2 cm in length while the left kidney measures 10.1 cm. There is no evidence of hydronephrosis or a renal mass. The renal parenchymal echogenicity is within normal limits. No abnormal perinephric process is seen. Limited views of the partially filled urinary bladder show no abnormality. IMPRESSION: No significant renal abnormality is detected.
[2016-06-28] MEDS ORDERED: MORPHINE SULFATE 4 MG/ML DISP.SYRIN. IV PRN (16:30)
[2016-06-28 19:00] VITALS: BP 94/58
[2016-06-28] MEDS ORDERED: LIDOCAINE (700MG/PATCH) PATCH. TD SCH (19:00)
--- NOTE | 2016-06-28 19:12 | PDOC ---
Provider Note Provider Note Urology: Consult dictated PEDRO BLOOM DO Jun 28, 2016 19:12
[2016-06-28] MEDS ORDERED: DOCUSATE SODIUM 100 MG CAPSULE. PO PRN (21:00)
--- NOTE | 2016-06-28 22:24 | PDOC ---
Provider Note Provider Note Spiked temperature of 102.2 this morning. Afebrile at present. She continues to complain and cry with pain in the back and in the pelvic area. She felt that the lidocaine patches were causing her to have spasms and wanted it removed. It is difficult to know where exactly her pain is located. Continues to pass pink urine. Could be due to the medication rather than hematuria. Encouraged her to use incentive spirometry. On broad spectrum coverage. Await urine culture report. Also await consultation from Dr. Calles. She needs to have occupational therapy for recent fracture wrist. SARAH LOPEZ MD Jun 28, 2016 22:24
[2016-06-28] MEDS ORDERED: DIAZEPAM 10 MG/2 ML DISP.SYRIN. IV PRN (22:30)
[2016-06-28] MEDS ORDERED: DIAZEPAM 5 MG TABLET PO SCH (22:30)
[2016-06-28] MEDS ORDERED: DIAZEPAM 5 MG TABLET PO ONE (22:45)
[2016-06-28] MEDS: AA 4.25%/CALCIUM/LYTES/D5W 1,000 ML IV SCH (22:54)
[2016-06-29] VITALS (7 sets, daily range): BP systolic 96–133; BP diastolic 59–77
[2016-06-29] MEDS ORDERED: VANCOMYCIN 1.25 GM in IV NORMAL SALINE 250ML 250 ML IV SCH ×2
[2016-06-29] MEDS: FENTANYL PF 100 MCG/2 ML VIAL. IV PRN ×3 (01:44→19:25)
--- NOTE | 2016-06-29 01:56 | CONS ---
DATE OF CONSULTATION: 06/28/2016 PATIENT'S ROOM: 519 REQUESTING PHYSICIAN: Dr. Laura. REASON FOR CONSULTATION: Fever. HISTORY OF PRESENT ILLNESS: The patient is a 51-year-old female with a history of lung cancer diagnosed in 2011. She has undergone a left upper lung resection and has received chemotherapy, does have a Port-A-Cath in place. Last saw Dr. Kitchen a month or so ago and apparently had been told that she had been doing fairly well. There is a question of whether it was last week or last month that the patient had some complications with urinary frequency and was prescribed empiric ciprofloxacin for 3 days. This past Saturday, she awakened at 3:00 in the morning, went to the restroom, noticed that she was bleeding from her vaginal area. She evaluated herself, did not find any areas of trauma. She has had a hysterectomy and so she concluded that she has some blood in her urine. She then developed some increasing discomfort and pain and has had some sinus congestion as well as cough with minimal sputum production. Her states that they have a son who recently had some bronchitis. She was admitted to [facility] yesterday. A urinalysis was obtained. She was placed on Rocephin. Urinalysis had occasional squamous greater than 40, large leukocyte esterase. She had 0 wbc's. Nitrite was unable to be discerned. There was no imaging. Additionally, she was placed on a BIOLOGICAL SCIENCES PROFESSOR secondary to a fair amount of pain. This morning, she had developed a temperature of 102 and I have been consulted. Currently, she is sitting in a chair. She is having some nausea and some vomiting. Denies any gross headaches, no falls or trauma. Did have occasional loose stool, but that is not unusual for her. PAST MEDICAL HISTORY: Positive for recent left radial fracture, status post open reduction and internal fixation, history of the previous lung cancer, history of atrial fibrillation with previous ablation, coronary artery disease, previous myocardial infarction with left ventricular dysfunction. 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 REVIEW OF SYSTEMS: Otherwise negative except for mentioned above. ALLERGIES: NO KNOWN ANTIBIOTIC ALLERGIES, BUT BACLOFEN, CYCLOBENZAPRINE, BENADRYL AND METOCLOPRAMIDE LISTED. SOCIAL HISTORY: She is . Her is currently ____. No tobacco or alcohol. FAMILY HISTORY: Father had renal cell carcinoma, heart disease. Mother had chemical burn and heart failure. Brother in a motor vehicle accident. CURRENT MEDICATIONS: Include Rocephin, fentanyl BIOLOGICAL SCIENCES PROFESSOR, Xanax, Colace, metoprolol. Other meds are available and reviewed in the chart. PHYSICAL EXAMINATION: VITAL SIGNS: T-max and T-current is 102, most recent pulse 113, respirations were 20, blood pressure 106/72, satting 93% on room air. CONSTITUTIONAL: She is sitting upright in a chair. She looks tired, but she is cooperative. HEENT: Pupils are equal and reactive. Normal conjunctivae. Oral cavity and pharynx, she has dentures. Otherwise, clear. NECK: Supple. LUNGS: Decreased in the bases. HEART: Tachycardic, S1, S2. Right-sided ____ chest cath without signs of complications. ABDOMEN: Soft, nontender, no guarding, no rebound. There is some mild tenderness in the back, lower lumbar flank area. EXTREMITIES: No clubbing, cyanosis or gross edema. SKIN: Warm to touch without signs of rash. NEUROLOGIC: She is nonfocal. PSYCHIATRIC: Affect is appropriate. LABORATORY DATA: Aside from the urine mentioned above, there are no imaging studies. IMPRESSION: 1. Questionable sepsis. 2. Fever 102. 3. Sinus congestion. 4. Hematuria, questionable failed Cipro, whether this was last month or last week is some debate. 5. Back pain. 6. Nausea, vomiting. RECOMMENDATIONS: Ordered a stat CBC, BMP and lactic acid as well as a flu screen and chest x-ray. Blood cultures had already been ordered. We will add vancomycin given her Port-A-Cath, also given her extensive history, it is likely she has had a fair amount of antibiotic exposure, so therefore we will add meropenem 1 dose, azithromycin x 1. We will follow up on the chest x-ray to rule out she has got some type of potential community-acquired pneumonia. We will follow up on labs, urine culture, await CT scan that has been obtained. This was discussed with her . Thank you for allowing me to participate in this patient's care. If you have any questions, please do not hesitate to contact me. HERIBERTO TORRES MD DR: Bubba JOB#: [id number] / [id number]
--- NOTE | 2016-06-29 05:28 | CONS ---
DATE OF CONSULTATION: 06/28/2016 I saw her on 06/28/2016 at the request of Dr. Laura. HISTORY OF PRESENT ILLNESS: This is a 51-year-old female known to me. The patient was admitted on 06/27/2016 with davon hematuria with associated pain. She also had significant pain, trying to have a bowel movement. The patient also admits severe pain in her vaginal area. She also admits to lower back pain. This all started about 2-3 days ago. The patient had urinary frequency a week ago prior to the hospitalization, has been taking Cipro. The patient with carcinoma of lung and lobectomy, metastasis to her adrenals and left adrenalectomy, metastasis to the frontal lobe and left frontal lobectomy. She had undergone chemotherapy. The patient admits some cognitive difficulties that make her frustrated. The patient had myocardial perfusion studies which were within normal limits. She also had fracture of left wrist where she had a cast placed that from skating injury with her grandkids. The patient is known ALLERGIC TO BACLOFEN, FLEXERIL, DIPHENHYDRAMINE AND METOCLOPRAMIDE. The patient admits pain is somewhat better this afternoon. Patient apparently was taking fentanyl drip. She lives with her family. No stairs for her to manage. She usually walks without any assistive devices. PHYSICAL EXAMINATION: Today, revealed a middle-aged female. She is alert, oriented to time, place, person and circumstance and follows commands appropriately. She is receiving oxygen by nasal cannula. She had an IV line in place. She had moderate degree of lumbar paraspinal muscle spasm with associated tenderness to palpation over lumbar paraspinal muscles extending over to left gluteal muscles, trochanteric bursa and also left hip adductor tendon attachment to pubic tubercle. She had crepitus on range of motion of both knee joints without any obvious knee joint effusion. She had 5/5 grade muscle strength in her extremities and deep tendon reflexes are decreased overall with absent ankle jerks. She had equal perception of touch and pinprick sensation bilaterally. She had painful limited movements of her lumbar spine. 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 RECOMMENDATIONS: To obtain MRI scan of her lumbar vertebrae to make sure she does not have any disk problems, to ask physical therapy to see her to help with her back pain to get her up as tolerated. Dr. Laura, I appreciate asking me to participate in the care of this interesting patient. I will be glad to follow her with you as needed for her rehabilitation. SAMREEN HERBERT MD DR: CAMRON/lida JOB#: [id number] / [id number]
[2016-06-29] MEDS: MEROPENEM 500 MG in IV NORMAL SALINE 50ML 50 ML IV SCH ×3 (05:37→17:48)
--- NOTE | 2016-06-29 06:00 | CONS ---
DATE OF CONSULTATION: 06/28/2016 CHIEF COMPLAINT: Gross hematuria. HISTORY OF PRESENT ILLNESS: This is a 51-year-old female, who was admitted to the hospital with a history of gross hematuria. She told me that she is also experiencing some low back pain. According to the patient, she is treated for urinary tract infection about a week ago. She received 3 days of Cipro antibiotics. The patient states that her gross hematuria was first noted when she went to the bathroom and wiped herself. She states that she saw gross hematuria in the toilet. She states this continued and she went and saw her family doctor, Dr. Laura and according to the patient, she still had gross hematuria at that point. The patient was admitted to the hospital for pain control. It is my understanding that she takes considerable amount of oxycodone at home. The patient states that she has never had these symptoms before. The patient has had a previous hysterectomy and she is pretty sure that the blood was coming from her urine. PAST MEDICAL HISTORY: The patient has a history of chronic pain and takes considerable amount of narcotics at home. She has also been seen at the pain clinic. She has had a previous lobectomy for cancer. The patient had a left adrenalectomy due to metastasis. The patient has also had craniotomy and frontal lobe surgery. It is my understanding that the oncologist has told her that she is free of cancer at this time. The patient has been treated for chronic pelvic pain, etiology has been uncertain. The patient recently had a fracture of her wrist. She is currently wearing a cast. ALLERGIES: THE PATIENT IS ALLERGIC TO BACLOFEN, CYCLOBENZAPRINE, DIPHENHYDRAMINE AND METOCLOPRAMIDE. PHYSICAL EXAMINATION: GENERAL DESCRIPTION: A 51-year-old female, appears to be alert and oriented. She complains of low back pain. She was recently given some IV medication. ABDOMEN: The abdomen is soft, nontender. Negative for flank pain to palpation bilaterally. The pain she describes in her lower lumbosacral region. There is no palpable abdominal masses. She denies suprapubic tenderness to palpation. EXTREMITIES: Negative for cyanosis or edema. LABORATORY DATA: The patient's white blood cell count 11.9, hemoglobin 13.1, hematocrit 40.8. The patient's electrolytes are normal, creatinine is normal at 0.7, BUN was 6, calcium is normal. Urinalysis: [place] in color, most likely due to the Pyridium she was taking, trace of blood, microscopically 0-1 red blood cells per high power field, greater than 40 white blood cells per high power field, trace of bacteria. Urine culture thus far no growth. X-ray studies: Renal ultrasound was performed, most significant renal abnormality, no hydronephrosis, no stones. The patient then underwent a noncontrast CT scan of the abdomen and pelvis shows kidneys and ureters were normal in appearance with no sign of calculi or obstruction, no hydronephrosis. The comment from the radiologist states that the urinary bladder appears to be somewhat indistinct. That maybe surrounding ____ states that the evaluation of the bladder was limited and the impressions the radiologist said that irregular appearance to the urinary bladder, nonspecific in nature. IMPRESSION: 1. Reported gross hematuria (the nursing staff tells me that they have not seen any gross hematuria since her admission). 2. Recently treated for urinary tract infection. 3. Chronic pain. SUGGESTIONS: 1. Await the suggestions of Infectious Disease. 2. At some point, she needs to undergo cystoscopy, possible bladder biopsies. 3. The gross hematuria has not been identified since she has been in the hospital according to the nursing staff. Thank you for the opportunity to participate in evaluation of this patient. PEDRO BLOOM DO DR: SHERRIE/lida JOB#: [id number] / [id number]
[2016-06-29 06:11] LABS: BASO % 0 % (0-3); EOS % 2 % (0-3); HEMATOCRIT 32.3 % (36.0-47.0); HEMOGLOBIN 10.6 g/dL (12.0-15.5); LYMPH # 1.5 x10^3/uL (1.0-4.8); LYMPH % 22 % (24-48); MEAN CORPUSCULAR HEMOGLOBIN 30 pg (25-35); MEAN CORPUSCULAR HGB CONC 33 g/dL (31-37); MEAN CORPUSCULAR VOLUME 92 fL (79-100); MONO % 10 % (0-9); NEUT % 67 % (31-73); PLATELET COUNT 197 x10^3/uL (140-400); RED BLOOD COUNT 3.54 x10^6/uL (3.50-5.40); RED CELL DISTRIBUTION WIDTH 13.3 % (11.5-14.5); WHITE BLOOD COUNT 6.8 x10^3/uL (4.0-11.0)
[2016-06-29] MEDS: DOCUSATE SODIUM 100 MG CAPSULE. PO SCH ×2 (06:17→18:01)
[2016-06-29 06:34] LABS: CALCIUM 8.3 mg/dL (8.5-10.1); CREATININE 0.6 mg/dL (0.6-1.0); POTASSIUM 3.9 mmol/L (3.5-5.1)
[2016-06-29] MEDS: LINEZOLID 600 MG TABLET PO SCH ×2 (08:46→20:10)
--- NOTE | 2016-06-29 09:55 | PDOC ---
PROGRESS NOTES Subjective Subjective She feels better. Objective Objective Vital Signs Date Time Temp Pulse Resp B/P Pulse Ox O2 Delivery O2 Flow Rate FiO2 06/29/16 08:06 97.5 94 16 96/68 97 Nasal Cannula 2.0 97.5 Intake and Output 06/29/16 07:00 Intake Total 1070 ml Output Total 2425 ml Balance -1355 ml Intake Oral 420 ml IV Total 650 ml Output Urine Total 2425 ml Physical Exam Physical Exam She is sleepy this AM lying on her left side. Plan Plan of Care To get her up as tolerated and to consider trigger point injections to left trochanteric bursa if pain persists. Comment Review of Relevant I have reviewed the following items kristen (where applicable) has been applied. Labs Laboratory Tests Test 06/27/16 21:30 06/28/16 08:50 06/28/16 09:05 06/28/16 09:45 Urine Collection Type Unknown Urine Color [place] Urine Clarity Clear Urine pH 5.5 Urine Specific [place] <=1.005 Urine Protein Negativemg/dL (NEG-TRACE) Urine Glucose (UA) Negativemg/dL (NEG) Urine Ketones (Stick) Negativemg/dL (NEG) Urine Blood Small (NEG) Urine Nitrite (NEG) Urine Bilirubin Negative (NEG) Urine Urobilinogen Dipstick 1.0mg/dL (0.2 mg/dL) Urine Leukocyte Esterase Large (NEG) Urine RBC 0/HPF (0-2) Urine WBC >40/HPF (0-4) Urine Squamous Epithelial Cells Occ/LPF Urine Bacteria Few/HPF (0-FEW) White Blood Count 11.9x10^3/uL (4.0-11.0) Red Blood Count 4.42x10^6/uL (3.50-5.40) Hemoglobin 13.1g/dL (12.0-15.5) Hematocrit 40.8% (36.0-47.0) Mean Corpuscular Volume 92fL (79-100) Mean Corpuscular Hemoglobin 30pg (25-35) Mean Corpuscular Hemoglobin Concent 32g/dL (31-37) Red Cell Distribution Width 13.2% (11.5-14.5) Platelet Count 209x10^3/uL (140-400) Neutrophils (%) (Auto) 81% (31-73) Lymphocytes (%) (Auto) 11% (24-48) Monocytes (%) (Auto) 7% (0-9) Eosinophils (%) (Auto) 1% (0-3) Basophils (%) (Auto) 0% (0-3) Neutrophils # (Auto) 9.7x10^3uL (1.8-7.7) Lymphocytes # (Auto) 1.3x10^3/uL (1.0-4.8) Monocytes # (Auto) 0.8x10^3/uL (0.0-1.1) Eosinophils # (Auto) 0.1x10^3/uL (0.0-0.7) Basophils # (Auto) 0.1x10^3/uL (0.0-0.2) Sodium Level 141mmol/L (136-145) Potassium Level 4.8mmol/L (3.5-5.1) Chloride Level 105mmol/L (98-107) Carbon Dioxide Level 29mmol/L (21-32) Anion Gap 7 (6-14) Blood Urea Nitrogen 6mg/dL (7-20) Creatinine 0.7mg/dL (0.6-1.0) Estimated GFR (Cockcroft-Gault) 87.9 Glucose Level 130mg/dL (70-99) Calcium Level 8.5mg/dL (8.5-10.1) Lactic Acid Level 2.1mmol/L (0.4-2.0) Influenza Type A Antigen Negative (NEGATIVE) Influenza Type B Antigen Negative (NEGATIVE) Test 06/28/16 19:30 06/29/16 05:45 Erythrocyte Sedimentation Rate 4 (0-25) White Blood Count 6.8x10^3/uL (4.0-11.0) Red Blood Count 3.54x10^6/uL (3.50-5.40) Hemoglobin 10.6g/dL (12.0-15.5) Hematocrit 32.3% (36.0-47.0) Mean Corpuscular Volume 92fL (79-100) Mean Corpuscular Hemoglobin 30pg (25-35) Mean Corpuscular Hemoglobin Concent 33g/dL (31-37) Red Cell Distribution Width 13.3% (11.5-14.5) Platelet Count 197x10^3/uL (140-400) Neutrophils (%) (Auto) 67% (31-73) Lymphocytes (%) (Auto) 22% (24-48) Monocytes (%) (Auto) 10% (0-9) Eosinophils (%) (Auto) 2% (0-3) Basophils (%) (Auto) 0% (0-3) Neutrophils # (Auto) 4.6x10^3uL (1.8-7.7) Lymphocytes # (Auto) 1.5x10^3/uL (1.0-4.8) Monocytes # (Auto) 0.7x10^3/uL (0.0-1.1) Eosinophils # (Auto) 0.1x10^3/uL (0.0-0.7) Basophils # (Auto) 0.0x10^3/uL (0.0-0.2) Sodium Level 140mmol/L (136-145) Potassium Level 3.9mmol/L (3.5-5.1) Chloride Level 105mmol/L (98-107) Carbon Dioxide Level 34mmol/L (21-32) Anion Gap 1 (6-14) Blood Urea Nitrogen 6mg/dL (7-20) Creatinine 0.6mg/dL (0.6-1.0) Estimated GFR (Cockcroft-Gault) 105.0 Glucose Level 145mg/dL (70-99) Calcium Level 8.3mg/dL (8.5-10.1) Laboratory Tests Test 06/28/16 19:30 06/29/16 05:45 Erythrocyte Sedimentation Rate 4 (0-25) White Blood Count 6.8x10^3/uL (4.0-11.0) Red Blood Count 3.54x10^6/uL (3.50-5.40) Hemoglobin 10.6g/dL (12.0-15.5) Hematocrit 32.3% (36.0-47.0) Mean Corpuscular Volume 92fL (79-100) Mean Corpuscular Hemoglobin 30pg (25-35) Mean Corpuscular Hemoglobin Concent 33g/dL (31-37) Red Cell Distribution Width 13.3% (11.5-14.5) Platelet Count 197x10^3/uL (140-400) Neutrophils (%) (Auto) 67% (31-73) Lymphocytes (%) (Auto) 22% (24-48) Monocytes (%) (Auto) 10% (0-9) Eosinophils (%) (Auto) 2% (0-3) Basophils (%) (Auto) 0% (0-3) Neutrophils # (Auto) 4.6x10^3uL (1.8-7.7) Lymphocytes # (Auto) 1.5x10^3/uL (1.0-4.8) Monocytes # (Auto) 0.7x10^3/uL (0.0-1.1) Eosinophils # (Auto) 0.1x10^3/uL (0.0-0.7) Basophils # (Auto) 0.0x10^3/uL (0.0-0.2) Sodium Level 140mmol/L (136-145) Potassium Level 3.9mmol/L (3.5-5.1) Chloride Level 105mmol/L (98-107) Carbon Dioxide Level 34mmol/L (21-32) Anion Gap 1 (6-14) Blood Urea Nitrogen 6mg/dL (7-20) Creatinine 0.6mg/dL (0.6-1.0) Estimated GFR (Cockcroft-Gault) 105.0 Glucose Level 145mg/dL (70-99) Calcium Level 8.3mg/dL (8.5-10.1) Microbiology 06/28/16 Blood Culture - Preliminary, Resulted NO GROWTH AFTER 1 DAY 06/27/16 Urine Culture - Preliminary, Resulted 06/27/16 Urine Culture Result 1 (ASHLI) - Preliminary, Resulted Medications Current Medications Fentanyl Citrate (Fentanyl 2ml Vial) 50 mcg 1X ONCE IV Last administered on 17:22; Start 06/27/16 at 16:45; Stop 06/27/16 at 16:46; Status DC Phenazopyridine HCl 200 mg 200 mg PRN Q6HRS PRN PO URINARY PAIN Last administered on 06/28/16 16:51; Start 06/27/16 at 16:45; Stop 06/28/16 at 22:32; Status DC Ceftriaxone Sodium 1 gm/ Sodium Chloride 50 ml @ 100 mls/hr Q24H IV Last administered on 06/27/16 17:33; Start 06/27/16 at 17:00; Stop 06/28/16 at 08:58; Status DC Fentanyl Citrate 30 ml @ 0 mls/hr CONT PRN PRN IV PROTOCOL Last administered on 06/27/16 19:06; Start 06/27/16 at 17:30; Stop 06/28/16 at 14:34; Status DC Sodium Chloride (Iv Sodium Chloride 0.9% 1000ml Bag) 1,000 ml @ 100 mls/hr Q10H IV Last administered on 06/28/16 20:16; Start 06/27/16 at 18:45; Stop at 22:31; Status DC Alprazolam (Xanax) 1 mg PRN Q6HRS PRN PO ANXIETY / AGITATION Last administered on 06/28/16 04:23; Start 06/27/16 at 21:30; Stop 06/28/16 at 22:32; Status DC Docusate Sodium (Colace) 100 mg [id number] PO Last administered on 06/28/16 17:51; Start 06/28/16 at 07:00 Ondansetron HCl (Zofran Odt) 8 mg PRN Q6HRS PRN PO NAUSEA/VOMITING Last administered on 06/28/16 20:15; Start 06/27/16 at 21:30 Zolpidem Tartrate (Ambien) 5 mg PRN QHS PRN PO INSOMNIA, MAY REPEAT IN 1HR Last administered on 06/27/16 21:51; Start 06/27/16 at 21:30 Oxycodone HCl (Roxicodone) 30 mg PRN Q4HRS PRN PO PAIN Last administered on 06/28 21:16; Start 06/27/16 at 21:30; Stop 06/28/16 at 22:32; Status DC Fentanyl Citrate (Fentanyl 2ml Vial) 50 mcg 1X ONCE IV Last administered on 08:40; Start 06/28/16 at 09:00; Stop 06/28/16 at 09:01; Status DC Metoprolol Tartrate (Lopressor) 25 mg 1X ONCE PO ; Start 06/28/16 at 09:00; Stop 06/28/16 at 09:01; Status DC Acetaminophen (Tylenol) 650 mg PRN Q6HRS PRN PO MILD PAIN / TEMP Last administered on 06/29/16 03:46; Start 06/28/16 at 08:30 Vancomycin HCl 1 each 1 each PRN DAILY PRN MC SEE COMMENTS Last administered on 06/28/16 13:25; Start 06/28/16 at 09:00; Stop 06/28/16 at 14:12; Status DC Meropenem 500 mg/ Sodium Chloride 50 ml @ 100 mls/hr Q6HRS IV Last administered on 06/29/16 05:37; Start 06/28/16 at 09:30 Azithromycin 250 ml @ 250 mls/hr 1X ONCE IV Last administered on 06/28/16 11: 13; Start 06/28/16 at 09:30; Stop 06/28/16 at 10:29; Status DC Vancomycin HCl/ Sodium Chloride (Iv Sodium Chloride 0.9% 500ml Bag) 500 ml @ 250 mls/hr 1X ONCE IV Last administered on 06/28/16 12:29; Start 06/28/16 at 10 :00; Stop 06/28/16 at 11:59; Status DC Vancomycin HCl 1 each 1 each 1X ONCE MC ; Start 06/29/16 at 23:30; Stop 06/29/16 at 23:30; Status DC Vancomycin HCl/ Sodium Chloride (Iv Sodium Chloride 0.9% 250ml) 250 ml @ 166.667 mls/hr Q12H IV ; Start 06/29/16 at 00:00; Stop 06/29/16 at 00:00; Status DC Acetaminophen (Tylenol) 500 mg PRN Q6HRS PRN PO MILD PAIN / TEMP; Start at 14:15 Linezolid (Zyvox) 600 mg BID PO Last administered on 06/29/16 08:46; Start 06/28 at 14:30 Alprazolam (Xanax) 1 mg PRN QID PRN PO ANXIETY / AGITATION; Start 06/28/16 at 14 :15; Stop 06/28/16 at 22:32; Status DC Ondansetron HCl (Zofran Odt) 4 mg PRN Q8HRS PRN PO nausea; Start 06/28/16 at 14: 15 Oxycodone HCl (Roxicodone) 15 mg PRN Q4HRS PRN PO PAIN; Start 06/28/16 at 14:15 ; Stop 06/28/16 at 14:34; Status DC Docusate Sodium (Colace) 200 mg PRN BID PRN PO CONSTIPATION; Start 06/28/16 at 21:00 Non-Formulary Medication 10 mg HS PRN PO INSOMNIA; Start 06/28/16 at 14:15; Status UNV Fentanyl Citrate (Fentanyl 2ml Vial) 50 mcg PRN Q2HR PRN IV PAIN Last administered on 06/29/16 01:44; Start 06/28/16 at 14:45 Morphine Sulfate 4 mg PRN Q2HR PRN IV PAIN; Start 06/28/16 at 16:30; Stop at 22:32; Status DC Lidocaine (Lidoderm) 1 patch DAILY TD Last administered on 06/28/16 20:16; Start 06/28/16 at 19:00; Stop 06/28/16 at 22:32; Status DC Diazepam (Valium) 5 mg 1X ONCE PO Last administered on 06/28/16 22:53; Start 06/28/16 at 22:45; Stop 06/28/16 at 22:46; Status DC Diazepam (Valium) 5 mg PRN Q6HRS PRN IV SEIZURES; Start 06/28/16 at 22:30 Diazepam 5 mg 5 mg Q8H PO ; Start 06/28/16 at 22:30; Stop 06/28/16 at 22:32; Status DC Amino Acids/ Electrolytes/ Dextrose (Clinimix E 4.25%-5% Solution) 1,000 ml @ 80 mls/hr [id number] IV Last administered on 06/28/16 22:54; Start 06/28/16 at 23: 00 Active Scripts Active Reported Ambien (Zolpidem Tartrate) 10 Mg Tablet 10 Mg PO HS PRN Zofran Odt (Ondansetron) 4 Mg Tab.rapdis 1 Tab SL Q8HRS Oxycodone Hcl 30 Mg Tablet 15 Mg PO PRN Q4HRS PRN Docusate Sodium 100 Mg Tablet 200 Mg PO BID PRN Alprazolam 1 Mg Tablet 1 Tab PO QID PRN Vitals/I & O Vital Sign - Last 24 Hours 06/28/16 06/28/16 06/28/16 06/28/16 10:04 10:30 11:10 14:30 Temp 99.0 98.8 99.0 98.8 Pulse 102 106 Resp 20 20 B/P 86/59 91/62 Pulse Ox 92 94 94 95 O2 Delivery Nasal Cannula Nasal Cannula Nasal Cannula Nasal Cannula O2 Flow Rate 3.0 3.0 3.0 3.0 06/28/16 06/28/16 06/28/16 06/28/16 15:19 16:51 19:00 20:00 Temp 98.4 98.4 Pulse 69 B/P 94/58 Pulse Ox 95 95 O2 Delivery Nasal Cannula Nasal Cannula Room Air Room Air O2 Flow Rate 3.0 3.0 3.0 3.0 06/28/16 06/28/16 06/28/16 06/28/16 20:16 21:16 22:16 23:45 Pulse Ox 95 95 95 95 O2 Delivery Room Air Room Air Room Air Room Air O2 Flow Rate 3.0 3.0 3.0 3.0 06/29/16 06/29/16 06/29/16 06/29/16 01:44 02:14 03:00 07:55 Temp 97.5 97.5 97.5 97.5 Pulse 74 94 Resp 16 B/P 96/61 96/68 Pulse Ox 95 95 95 97 O2 Delivery Room Air Room Air Room Air Nasal Cannula O2 Flow Rate 3.0 3.0 3.0 2.0 06/29/16 06/29/16 08:00 08:06 Temp 97.5 97.5 Pulse 94 Resp 16 B/P 96/68 Pulse Ox 97 O2 Delivery Nasal Cannula Nasal Cannula O2 Flow Rate 3.0 2.0 Intake and Output 06/28/16 06/28/16 06/29/16 15:00 23:00 07:00 Intake Total 780 ml 240 ml 50 ml Output Total 700 ml 500 ml 1225 ml Balance 80 ml -260 ml -1175 ml SAMREEN HERBERT MD Jun 29, 2016 09:54
--- NOTE | 2016-06-29 11:00 | PDOC ---
Infectious Disease Note Subjective Subjective Was better this am but then pain again with urination ROS ROS GEN: Denies fevers, chills, sweats HEENT: Denies blurred vision, sore throat CV: Denies chest pain RESP: Denies shortness of air, cough GI: Denies n/v/d NEURO: Denies confusion, dizziness MSK: Denies weakness, joint pain/swelling Vital Sign Vital Signs Vital Signs Date Time Temp Pulse Resp B/P Pulse Ox O2 Delivery O2 Flow Rate FiO2 06/29/16 10:06 16 94 Nasal Cannula 2.0 06/29/16 08:06 97.5 94 96/68 97.5 Physical Exam PHYSICAL EXAM GENERAL: NAD, Alert, coop. looks better HEENT: PERRL, OC/OP- cler NECK: Supple, no JVD, no LN LUNGS: Clear HEART: S1S2, no gallop, no murmur. Port clean ABD: Soft, NT, no organomegaly, no rebound. 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, oriented x 3, no focal neurologic deficit SKIN: No rash IV: ok Labs Lab Laboratory Tests Test 06/28/16 19:30 06/29/16 05:45 Erythrocyte Sedimentation Rate 4 (0-25) White Blood Count 6.8x10^3/uL (4.0-11.0) Red Blood Count 3.54x10^6/uL (3.50-5.40) Hemoglobin 10.6g/dL (12.0-15.5) Hematocrit 32.3% (36.0-47.0) Mean Corpuscular Volume 92fL (79-100) Mean Corpuscular Hemoglobin 30pg (25-35) Mean Corpuscular Hemoglobin Concent 33g/dL (31-37) Red Cell Distribution Width 13.3% (11.5-14.5) Platelet Count 197x10^3/uL (140-400) Neutrophils (%) (Auto) 67% (31-73) Lymphocytes (%) (Auto) 22% (24-48) Monocytes (%) (Auto) 10% (0-9) Eosinophils (%) (Auto) 2% (0-3) Basophils (%) (Auto) 0% (0-3) Neutrophils # (Auto) 4.6x10^3uL (1.8-7.7) Lymphocytes # (Auto) 1.5x10^3/uL (1.0-4.8) Monocytes # (Auto) 0.7x10^3/uL (0.0-1.1) Eosinophils # (Auto) 0.1x10^3/uL (0.0-0.7) Basophils # (Auto) 0.0x10^3/uL (0.0-0.2) Sodium Level 140mmol/L (136-145) Potassium Level 3.9mmol/L (3.5-5.1) Chloride Level 105mmol/L (98-107) Carbon Dioxide Level 34mmol/L (21-32) Anion Gap 1 (6-14) Blood Urea Nitrogen 6mg/dL (7-20) Creatinine 0.6mg/dL (0.6-1.0) Estimated GFR (Cockcroft-Gault) 105.0 Glucose Level 145mg/dL (70-99) Calcium Level 8.3mg/dL (8.5-10.1) Micro Impression: 1. Emphysematous changes of lungs. Left lower lobe demonstrates nonspecific groundglass opacity and a mild amount consolidation, could be atelectasis versus airspace disease. Recommend correlation with respiratory symptoms. 2. No evidence of urinary stone. There is an irregular appearance to the urinary bladder, nonspecific. Consider cystitis. If cystitis is insufficient explanation for patient's hematuria and if there is concern for urinary mass, then CT urography could be performed. 3. Trace of free fluid in the right hemipelvis, abnormal in a female who has had previous total hysterectomy. Cause is not identified, however. 4. Bilateral sacroplasty. 5. Right adrenal adenoma. Objective Assessment ? Sepsis Fever - better Leukocytosis - better Sinus congestion - CXR and CT reviewed. Nonspecific groundglass Hematuria - less but still dark urine. CT with ? cystitis and trace free fluid Back pain N/V Plan Plan of Care Await urology f/u and scope Cont Meropenem/Vanc hold further Azithromycin F/u labs/urine cult D/w HERIBERTO TORRES MD Jun 29, 2016 11:00
--- NOTE | 2016-06-29 11:01 | PDOC ---
Provider Note Provider Note She continues to have severe pain and back spasms. She also complains of bladder spasms. She is on a large amount of narcotics. One could try B&O suppositories. Urine is now clear. No RBCs on microscopy. Urine culture negative. Await Dr. Calles's recommendations. SARAH LOPEZ MD Jun 29, 2016 11:01
[2016-06-29] MEDS: OXYCODONE IR 30 MG TABLET. PO SCH ×3 (11:24→20:11)
[2016-06-29] MEDS: DIAZEPAM 5 MG TABLET PO SCH ×2 (11:24→17:49)
--- NOTE | 2016-06-29 11:29 | PDOC ---
PROGRESS NOTES Chief Complaint Chief Complaint 1. hematuria 2. Pelvic pain 3. Acute on chronic pain, back pain, 4. UTI, 5. Elevated lactate, flu negative, leukocytosis 6. Hx lung CA with lobectomy 7. 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 Emphysematous lung changes 9. Possibly cystitis, interstitial History of Present Illness History of Present Illness pain meds adjusted yesterday fentanyl PRN O2 support prn she was anxious and agitated this AM, better after discussion problems Follow pain mx and urology recs try Azo for bladder pain Vitals Vitals Vital Signs Date Time Temp Pulse Resp B/P Pulse Ox O2 Delivery O2 Flow Rate FiO2 06/29/16 11:05 97.9 99 18 131/77 95 Nasal Cannula 2.0 97.9 Physical Exam General: Alert, Oriented X3, Cooperative, No acute distress Heart: Regular rate, Normal S1, Normal S2, No murmurs Lungs: Wheezing Abdomen: Normal bowel sounds, Soft, No tenderness Extremities: No clubbing, No cyanosis, No edema, Normal pulses, No tenderness/ swelling Skin: No rashes, No breakdown Labs LABS Laboratory Tests Test 06/28/16 19:30 06/29/16 05:45 Erythrocyte Sedimentation Rate 4 (0-25) White Blood Count 6.8x10^3/uL (4.0-11.0) Red Blood Count 3.54x10^6/uL (3.50-5.40) Hemoglobin 10.6g/dL (12.0-15.5) Hematocrit 32.3% (36.0-47.0) Mean Corpuscular Volume 92fL (79-100) Mean Corpuscular Hemoglobin 30pg (25-35) Mean Corpuscular Hemoglobin Concent 33g/dL (31-37) Red Cell Distribution Width 13.3% (11.5-14.5) Platelet Count 197x10^3/uL (140-400) Neutrophils (%) (Auto) 67% (31-73) Lymphocytes (%) (Auto) 22% (24-48) Monocytes (%) (Auto) 10% (0-9) Eosinophils (%) (Auto) 2% (0-3) Basophils (%) (Auto) 0% (0-3) Neutrophils # (Auto) 4.6x10^3uL (1.8-7.7) Lymphocytes # (Auto) 1.5x10^3/uL (1.0-4.8) Monocytes # (Auto) 0.7x10^3/uL (0.0-1.1) Eosinophils # (Auto) 0.1x10^3/uL (0.0-0.7) Basophils # (Auto) 0.0x10^3/uL (0.0-0.2) Sodium Level 140mmol/L (136-145) Potassium Level 3.9mmol/L (3.5-5.1) Chloride Level 105mmol/L (98-107) Carbon Dioxide Level 34mmol/L (21-32) Anion Gap 1 (6-14) Blood Urea Nitrogen 6mg/dL (7-20) Creatinine 0.6mg/dL (0.6-1.0) Estimated GFR (Cockcroft-Gault) 105.0 Glucose Level 145mg/dL (70-99) Calcium Level 8.3mg/dL (8.5-10.1) Review of Systems Review of Systems pain bladder spasm Assessment and Plan Assessmemt and Plan cont current Problems: Comment Review of Relevant I have reviewed the following items kristen (where applicable) has been applied. Labs Laboratory Tests Test 06/27/16 21:30 06/28/16 08:50 06/28/16 09:05 06/28/16 09:45 Urine Collection Type Unknown Urine Color Surry Urine Clarity Clear Urine pH 5.5 Urine Specific Warren <=1.005 Urine Protein Negativemg/dL (NEG-TRACE) Urine Glucose (UA) Negativemg/dL (NEG) Urine Ketones (Stick) Negativemg/dL (NEG) Urine Blood Small (NEG) Urine Nitrite (NEG) Urine Bilirubin Negative (NEG) Urine Urobilinogen Dipstick 1.0mg/dL (0.2 mg/dL) Urine Leukocyte Esterase Large (NEG) Urine RBC 0/HPF (0-2) Urine WBC >40/HPF (0-4) Urine Squamous Epithelial Cells Occ/LPF Urine Bacteria Few/HPF (0-FEW) White Blood Count 11.9x10^3/uL (4.0-11.0) Red Blood Count 4.42x10^6/uL (3.50-5.40) Hemoglobin 13.1g/dL (12.0-15.5) Hematocrit 40.8% (36.0-47.0) Mean Corpuscular Volume 92fL (79-100) Mean Corpuscular Hemoglobin 30pg (25-35) Mean Corpuscular Hemoglobin Concent 32g/dL (31-37) Red Cell Distribution Width 13.2% (11.5-14.5) Platelet Count 209x10^3/uL (140-400) Neutrophils (%) (Auto) 81% (31-73) Lymphocytes (%) (Auto) 11% (24-48) Monocytes (%) (Auto) 7% (0-9) Eosinophils (%) (Auto) 1% (0-3) Basophils (%) (Auto) 0% (0-3) Neutrophils # (Auto) 9.7x10^3uL (1.8-7.7) Lymphocytes # (Auto) 1.3x10^3/uL (1.0-4.8) Monocytes # (Auto) 0.8x10^3/uL (0.0-1.1) Eosinophils # (Auto) 0.1x10^3/uL (0.0-0.7) Basophils # (Auto) 0.1x10^3/uL (0.0-0.2) Sodium Level 141mmol/L (136-145) Potassium Level 4.8mmol/L (3.5-5.1) Chloride Level 105mmol/L (98-107) Carbon Dioxide Level 29mmol/L (21-32) Anion Gap 7 (6-14) Blood Urea Nitrogen 6mg/dL (7-20) Creatinine 0.7mg/dL (0.6-1.0) Estimated GFR (Cockcroft-Gault) 87.9 Glucose Level 130mg/dL (70-99) Calcium Level 8.5mg/dL (8.5-10.1) Lactic Acid Level 2.1mmol/L (0.4-2.0) Influenza Type A Antigen Negative (NEGATIVE) Influenza Type B Antigen Negative (NEGATIVE) Test 06/28/16 19:30 06/29/16 05:45 Erythrocyte Sedimentation Rate 4 (0-25) White Blood Count 6.8x10^3/uL (4.0-11.0) Red Blood Count 3.54x10^6/uL (3.50-5.40) Hemoglobin 10.6g/dL (12.0-15.5) Hematocrit 32.3% (36.0-47.0) Mean Corpuscular Volume 92fL (79-100) Mean Corpuscular Hemoglobin 30pg (25-35) Mean Corpuscular Hemoglobin Concent 33g/dL (31-37) Red Cell Distribution Width 13.3% (11.5-14.5) Platelet Count 197x10^3/uL (140-400) Neutrophils (%) (Auto) 67% (31-73) Lymphocytes (%) (Auto) 22% (24-48) Monocytes (%) (Auto) 10% (0-9) Eosinophils (%) (Auto) 2% (0-3) Basophils (%) (Auto) 0% (0-3) Neutrophils # (Auto) 4.6x10^3uL (1.8-7.7) Lymphocytes # (Auto) 1.5x10^3/uL (1.0-4.8) Monocytes # (Auto) 0.7x10^3/uL (0.0-1.1) Eosinophils # (Auto) 0.1x10^3/uL (0.0-0.7) Basophils # (Auto) 0.0x10^3/uL (0.0-0.2) Sodium Level 140mmol/L (136-145) Potassium Level 3.9mmol/L (3.5-5.1) Chloride Level 105mmol/L (98-107) Carbon Dioxide Level 34mmol/L (21-32) Anion Gap 1 (6-14) Blood Urea Nitrogen 6mg/dL (7-20) Creatinine 0.6mg/dL (0.6-1.0) Estimated GFR (Cockcroft-Gault) 105.0 Glucose Level 145mg/dL (70-99) Calcium Level 8.3mg/dL (8.5-10.1) Laboratory Tests Test 06/28/16 19:30 06/29/16 05:45 Erythrocyte Sedimentation Rate 4 (0-25) White Blood Count 6.8x10^3/uL (4.0-11.0) Red Blood Count 3.54x10^6/uL (3.50-5.40) Hemoglobin 10.6g/dL (12.0-15.5) Hematocrit 32.3% (36.0-47.0) Mean Corpuscular Volume 92fL (79-100) Mean Corpuscular Hemoglobin 30pg (25-35) Mean Corpuscular Hemoglobin Concent 33g/dL (31-37) Red Cell Distribution Width 13.3% (11.5-14.5) Platelet Count 197x10^3/uL (140-400) Neutrophils (%) (Auto) 67% (31-73) Lymphocytes (%) (Auto) 22% (24-48) Monocytes (%) (Auto) 10% (0-9) Eosinophils (%) (Auto) 2% (0-3) Basophils (%) (Auto) 0% (0-3) Neutrophils # (Auto) 4.6x10^3uL (1.8-7.7) Lymphocytes # (Auto) 1.5x10^3/uL (1.0-4.8) Monocytes # (Auto) 0.7x10^3/uL (0.0-1.1) Eosinophils # (Auto) 0.1x10^3/uL (0.0-0.7) Basophils # (Auto) 0.0x10^3/uL (0.0-0.2) Sodium Level 140mmol/L (136-145) Potassium Level 3.9mmol/L (3.5-5.1) Chloride Level 105mmol/L (98-107) Carbon Dioxide Level 34mmol/L (21-32) Anion Gap 1 (6-14) Blood Urea Nitrogen 6mg/dL (7-20) Creatinine 0.6mg/dL (0.6-1.0) Estimated GFR (Cockcroft-Gault) 105.0 Glucose Level 145mg/dL (70-99) Calcium Level 8.3mg/dL (8.5-10.1) Microbiology 06/28/16 Blood Culture - Preliminary, Resulted NO GROWTH AFTER 1 DAY 06/27/16 Urine Culture - Preliminary, Resulted 06/27/16 Urine Culture Result 1 (ASHLI) - Preliminary, Resulted Medications Current Medications Fentanyl Citrate (Fentanyl 2ml Vial) 50 mcg 1X ONCE IV Last administered on t 17:22; Start 06/27/16 at 16:45; Stop 06/27/16 at 16:46; Status DC Phenazopyridine HCl 200 mg 200 mg PRN Q6HRS PRN PO URINARY PAIN Last administered on 06/28/16 16:51; Start 06/27/16 at 16:45; Stop 06/28/16 at 22:32; Status DC Ceftriaxone Sodium 1 gm/ Sodium Chloride 50 ml @ 100 mls/hr Q24H IV Last administered on 06/27/16 17:33; Start 06/27/16 at 17:00; Stop 06/28/16 at 08:58; Status DC Fentanyl Citrate 30 ml @ 0 mls/hr CONT PRN PRN IV PROTOCOL Last administered on 06/27/16 19:06; Start 06/27/16 at 17:30; Stop 06/28/16 at 14:34; Status DC Sodium Chloride (Iv Sodium Chloride 0.9% 1000ml Bag) 1,000 ml @ 100 mls/hr Q10H IV Last administered on 06/28/16 20:16; Start 06/27/16 at 18:45; Stop at 22:31; Status DC Alprazolam (Xanax) 1 mg PRN Q6HRS PRN PO ANXIETY / AGITATION Last administered on 06/28/16 04:23; Start 06/27/16 at 21:30; Stop 06/28/16 at 22:32; Status DC Docusate Sodium (Colace) 100 mg [id number] PO Last administered on 06/28/16 17:51; Start 06/28/16 at 07:00 Ondansetron HCl (Zofran Odt) 8 mg PRN Q6HRS PRN PO NAUSEA/VOMITING Last administered on 06/28/16 20:15; Start 06/27/16 at 21:30 Zolpidem Tartrate (Ambien) 5 mg PRN QHS PRN PO INSOMNIA, MAY REPEAT IN 1HR Last administered on 06/27/16 21:51; Start 06/27/16 at 21:30 Oxycodone HCl (Roxicodone) 30 mg PRN Q4HRS PRN PO PAIN Last administered on 06/28 21:16; Start 06/27/16 at 21:30; Stop 06/28/16 at 22:32; Status DC Fentanyl Citrate (Fentanyl 2ml Vial) 50 mcg 1X ONCE IV Last administered on 08:40; Start 06/28/16 at 09:00; Stop 06/28/16 at 09:01; Status DC Metoprolol Tartrate (Lopressor) 25 mg 1X ONCE PO ; Start 06/28/16 at 09:00; Stop 06/28/16 at 09:01; Status DC Acetaminophen (Tylenol) 650 mg PRN Q6HRS PRN PO MILD PAIN / TEMP Last administered on 06/29/16 03:46; Start 06/28/16 at 08:30 Vancomycin HCl 1 each 1 each PRN DAILY PRN MC SEE COMMENTS Last administered on 06/28/16 13:25; Start 06/28/16 at 09:00; Stop 06/28/16 at 14:12; Status DC Meropenem 500 mg/ Sodium Chloride 50 ml @ 100 mls/hr Q6HRS IV Last administered on 06/29/16 05:37; Start 06/28/16 at 09:30 Azithromycin 250 ml @ 250 mls/hr 1X ONCE IV Last administered on 06/28/16 11: 13; Start 06/28/16 at 09:30; Stop 06/28/16 at 10:29; Status DC Vancomycin HCl/ Sodium Chloride (Iv Sodium Chloride 0.9% 500ml Bag) 500 ml @ 250 mls/hr 1X ONCE IV Last administered on 06/28/16 12:29; Start 06/28/16 at 10 :00; Stop 06/28/16 at 11:59; Status DC Vancomycin HCl 1 each 1 each 1X ONCE MC ; Start 06/29/16 at 23:30; Stop 06/29/16 at 23:30; Status DC Vancomycin HCl/ Sodium Chloride (Iv Sodium Chloride 0.9% 250ml) 250 ml @ 166.667 mls/hr Q12H IV ; Start 06/29/16 at 00:00; Stop 06/29/16 at 00:00; Status DC Acetaminophen (Tylenol) 500 mg PRN Q6HRS PRN PO MILD PAIN / TEMP; Start at 14:15 Linezolid (Zyvox) 600 mg BID PO Last administered on 06/29/16 08:46; Start 06/28 at 14:30 Alprazolam (Xanax) 1 mg PRN QID PRN PO ANXIETY / AGITATION; Start 06/28/16 at 14 :15; Stop 06/28/16 at 22:32; Status DC Ondansetron HCl (Zofran Odt) 4 mg PRN Q8HRS PRN PO nausea; Start 06/28/16 at 14: 15 Oxycodone HCl (Roxicodone) 15 mg PRN Q4HRS PRN PO PAIN; Start 06/28/16 at 14:15 ; Stop 06/28/16 at 14:34; Status DC Docusate Sodium (Colace) 200 mg PRN BID PRN PO CONSTIPATION; Start 06/28/16 at 21:00 Non-Formulary Medication 10 mg HS PRN PO INSOMNIA; Start 06/28/16 at 14:15; Status UNV Fentanyl Citrate (Fentanyl 2ml Vial) 50 mcg PRN Q2HR PRN IV PAIN Last administered on 06/29/16 10:06; Start 06/28/16 at 14:45; Stop 06/29/16 at 11:13; Status DC Morphine Sulfate 4 mg PRN Q2HR PRN IV PAIN; Start 06/28/16 at 16:30; Stop at 22:32; Status DC Lidocaine (Lidoderm) 1 patch DAILY TD Last administered on 06/28/16 20:16; Start 06/28/16 at 19:00; Stop 06/28/16 at 22:32; Status DC Diazepam (Valium) 5 mg 1X ONCE PO Last administered on 06/28/16 22:53; Start 06/28/16 at 22:45; Stop 06/28/16 at 22:46; Status DC Diazepam (Valium) 5 mg PRN Q6HRS PRN IV SEIZURES; Start 06/28/16 at 22:30; Stop 06/29/16 at 11:13; Status DC Diazepam 5 mg 5 mg Q8H PO ; Start 06/28/16 at 22:30; Stop 06/28/16 at 22:32; Status DC Amino Acids/ Electrolytes/ Dextrose (Clinimix E 4.25%-5% Solution) 1,000 ml @ 80 mls/hr [id number] IV Last administered on 06/28/16 22:54; Start 06/28/16 at 23: 00 Oxycodone HCl (Roxicodone) 30 mg Q4HRS PO ; Start 06/29/16 at 12:00 Diazepam (Valium) 5 mg Q6HRS PO ; Start 06/29/16 at 12:00 Belladonna Alkaloids/Opium (B & O) 1 supp PRN Q12HR PRN [place] PAIN; Start 06/29/16 at 11:15 Active Scripts Active Reported Ambien (Zolpidem Tartrate) 10 Mg Tablet 10 Mg PO HS PRN Zofran Odt (Ondansetron) 4 Mg Tab.rapdis 1 Tab SL Q8HRS Oxycodone Hcl 30 Mg Tablet 15 Mg PO PRN Q4HRS PRN Docusate Sodium 100 Mg Tablet 200 Mg PO BID PRN Alprazolam 1 Mg Tablet 1 Tab PO QID PRN Vitals/I & O Vital Sign - Last 24 Hours 06/28/16 06/28/16 06/28/16 06/28/16 14:30 15:19 16:51 19:00 Temp 98.8 98.4 98.8 98.4 Pulse 106 69 Resp 20 B/P 91/62 94/58 Pulse Ox 95 95 95 O2 Delivery Nasal Cannula Nasal Cannula Nasal Cannula Room Air O2 Flow Rate 3.0 3.0 3.0 3.0 06/28/16 06/28/16 06/28/16 06/28/16 20:00 20:16 21:16 22:16 Pulse Ox 95 95 95 O2 Delivery Room Air Room Air Room Air Room Air O2 Flow Rate 3.0 3.0 3.0 3.0 06/28/16 06/29/16 06/29/16 06/29/16 23:45 01:44 03:00 07:55 Temp 97.5 97.5 97.5 97.5 Pulse 74 94 Resp 16 B/P 96/61 96/68 Pulse Ox 95 95 95 97 O2 Delivery Room Air Room Air Room Air Nasal Cannula O2 Flow Rate 3.0 3.0 3.0 2.0 06/29/16 06/29/16 06/29/16 06/29/16 08:00 08:06 10:06 10:36 Temp 97.5 97.5 Pulse 94 Resp 16 16 B/P 96/68 Pulse Ox 97 94 94 O2 Delivery Nasal Cannula Nasal Cannula Nasal Cannula Nasal Cannula O2 Flow Rate 3.0 2.0 2.0 2.0 06/29/16 11:05 Temp 97.9 97.9 Pulse 99 Resp 18 B/P 131/77 Pulse Ox 95 O2 Delivery Nasal Cannula O2 Flow Rate 2.0 Intake and Output 06/28/16 06/28/16 06/29/16 15:00 23:00 07:00 Intake Total 780 ml 240 ml 50 ml Output Total 700 ml 500 ml 1225 ml Balance 80 ml -260 ml -1175 ml ERNA BUSBY MD Jun 29, 2016 11:29
[2016-06-29] MEDS: AA 4.25%/CALCIUM/LYTES/D5W 1,000 ML IV SCH (12:47)
--- NOTE | 2016-06-29 14:39 | RAD ---
MR LUMBAR SPINE HISTORY:low back and pelvic area pain, LBP X 2 DAYS, BLOOD IN URINE, NKI, H/O SACRALPLASTYReason: low back and pelvic area pain, LBP X 2 DAYS, BLOOD IN URINE, NKI / Spl. Instructions: / History: Technique: Sagittal T2, sagittal STIR, and sagittal T1-weighted images were obtained. Additional axial T1 and T2 weighted imaging was also performed. FINDINGS: Alignment and curvature are within normal limits. There is no compression fracture or deformity. Vertebral body heights are well maintained. Bone marrow signal is normal apart from a benign hemangioma at L2. There is mild multilevel degenerative disc height loss. The conus terminates normally at the level of L1. 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 Level by level analysis demonstrates no significant central spinal or neural foraminal stenosis. There has been previous bilateral sacroplasty. Impression: - Negative for central spinal or neural foraminal stenosis. - Negative for compression fracture or malalignment. - Choledochal ectasia. Correlate for history of cholecystectomy. Electronically signed by: Shiraz Haas (Jun 29, 2016 14:37:57)
[2016-06-29] MEDS: OPIUM/BELLADONNA 30/16.2MG SUPP.RECT. PR PRN (14:43)
[2016-06-29] MEDS: PHENAZOPYRIDINE 200 MG TABLET. PO PRN (19:25)
[2016-06-29] MEDS: ZOLPIDEM 5 MG TABLET. PO PRN ×2 (20:23→22:02)
[2016-06-30] MEDS: OXYCODONE IR 30 MG TABLET. PO SCH ×6 (00:04→21:07)
[2016-06-30] MEDS: DIAZEPAM 5 MG TABLET PO SCH ×4 (00:04→18:14)
[2016-06-30] MEDS: MEROPENEM 500 MG in IV NORMAL SALINE 50ML 50 ML IV SCH ×4 (00:05→18:15)
[2016-06-30] MEDS: AA 4.25%/CALCIUM/LYTES/D5W 1,000 ML IV SCH ×2 (00:05→15:02)
[2016-06-30] MEDS: DOCUSATE SODIUM 100 MG CAPSULE. PO SCH ×2 (05:42→18:15)
[2016-06-30 07:00] VITALS: BP 86/56
[2016-06-30] MEDS: LINEZOLID 600 MG TABLET PO SCH ×2 (07:59→21:07)
[2016-06-30] MEDS: OPIUM/BELLADONNA 30/16.2MG SUPP.RECT. PR PRN ×2 (08:04→21:14)
[2016-06-30] MEDS: PHENAZOPYRIDINE 200 MG TABLET. PO PRN ×2 (08:04→18:14)
--- NOTE | 2016-06-30 10:34 | PDOC ---
PROGRESS NOTES Subjective Subjective She admits continued low back and pelvic area pain. Objective Objective Vital Signs Date Time Temp Pulse Resp B/P Pulse Ox O2 Delivery O2 Flow Rate FiO2 06/30/16 08:00 Nasal Cannula 2.0 06/30/16 07:00 98.2 83 12 86/56 93 98.2 Intake and Output 06/30/16 07:00 Intake Total 1700 ml Output Total 975 ml Balance 725 ml Intake Oral 665 ml IV Total 1035 ml Output Urine Total 975 ml # Voids 6 Physical Exam Physical Exam She is alert and comfortable and she got up and walked with roller walker at bedside without any difficulty. Plan Plan of Care To get her up as tolerated and to try lumbar corset and home when medically stable. Comment Review of Relevant I have reviewed the following items kristen (where applicable) has been applied. Labs Laboratory Tests Test 06/28/16 19:30 06/29/16 05:45 Erythrocyte Sedimentation Rate 4 (0-25) White Blood Count 6.8x10^3/uL (4.0-11.0) Red Blood Count 3.54x10^6/uL (3.50-5.40) Hemoglobin 10.6g/dL (12.0-15.5) Hematocrit 32.3% (36.0-47.0) Mean Corpuscular Volume 92fL (79-100) Mean Corpuscular Hemoglobin 30pg (25-35) Mean Corpuscular Hemoglobin Concent 33g/dL (31-37) Red Cell Distribution Width 13.3% (11.5-14.5) Platelet Count 197x10^3/uL (140-400) Neutrophils (%) (Auto) 67% (31-73) Lymphocytes (%) (Auto) 22% (24-48) Monocytes (%) (Auto) 10% (0-9) Eosinophils (%) (Auto) 2% (0-3) Basophils (%) (Auto) 0% (0-3) Neutrophils # (Auto) 4.6x10^3uL (1.8-7.7) Lymphocytes # (Auto) 1.5x10^3/uL (1.0-4.8) Monocytes # (Auto) 0.7x10^3/uL (0.0-1.1) Eosinophils # (Auto) 0.1x10^3/uL (0.0-0.7) Basophils # (Auto) 0.0x10^3/uL (0.0-0.2) Sodium Level 140mmol/L (136-145) Potassium Level 3.9mmol/L (3.5-5.1) Chloride Level 105mmol/L (98-107) Carbon Dioxide Level 34mmol/L (21-32) Anion Gap 1 (6-14) Blood Urea Nitrogen 6mg/dL (7-20) Creatinine 0.6mg/dL (0.6-1.0) Estimated GFR (Cockcroft-Gault) 105.0 Glucose Level 145mg/dL (70-99) Calcium Level 8.3mg/dL (8.5-10.1) Microbiology 06/28/16 Blood Culture - Preliminary, Resulted NO GROWTH AFTER 2 DAYS 06/27/16 Urine Culture - Final, Complete 06/27/16 Urine Culture Result 1 (ASHLI) - Final, Complete Medications Current Medications Fentanyl Citrate (Fentanyl 2ml Vial) 50 mcg 1X ONCE IV Last administered on 17:22; Start 06/27/16 at 16:45; Stop 06/27/16 at 16:46; Status DC Phenazopyridine HCl 200 mg 200 mg PRN Q6HRS PRN PO URINARY PAIN Last administered on 06/28/16 16:51; Start 06/27/16 at 16:45; Stop 06/28/16 at 22:32; Status DC Ceftriaxone Sodium 1 gm/ Sodium Chloride 50 ml @ 100 mls/hr Q24H IV Last administered on 06/27/16 17:33; Start 06/27/16 at 17:00; Stop 06/28/16 at 08:58; Status DC Fentanyl Citrate 30 ml @ 0 mls/hr CONT PRN PRN IV PROTOCOL Last administered on 06/27/16 19:06; Start 06/27/16 at 17:30; Stop 06/28/16 at 14:34; Status DC Sodium Chloride (Iv Sodium Chloride 0.9% 1000ml Bag) 1,000 ml @ 100 mls/hr Q10H IV Last administered on 06/28/16 20:16; Start 06/27/16 at 18:45; Stop at 22:31; Status DC Alprazolam (Xanax) 1 mg PRN Q6HRS PRN PO ANXIETY / AGITATION Last administered on 06/28/16 04:23; Start 06/27/16 at 21:30; Stop 06/28/16 at 22:32; Status DC Docusate Sodium (Colace) 100 mg [id number] PO Last administered on 06/29/16 18:01; Start 06/28/16 at 07:00 Ondansetron HCl (Zofran Odt) 8 mg PRN Q6HRS PRN PO NAUSEA/VOMITING Last administered on 06/28/16 20:15; Start 06/27/16 at 21:30 Zolpidem Tartrate (Ambien) 5 mg PRN QHS PRN PO INSOMNIA, MAY REPEAT IN 1HR Last administered on 06/29/16 22:02; Start 06/27/16 at 21:30 Oxycodone HCl (Roxicodone) 30 mg PRN Q4HRS PRN PO PAIN Last administered on 06/28 21:16; Start 06/27/16 at 21:30; Stop 06/28/16 at 22:32; Status DC Fentanyl Citrate (Fentanyl 2ml Vial) 50 mcg 1X ONCE IV Last administered on 08:40; Start 06/28/16 at 09:00; Stop 06/28/16 at 09:01; Status DC Metoprolol Tartrate (Lopressor) 25 mg 1X ONCE PO ; Start 06/28/16 at 09:00; Stop 06/28/16 at 09:01; Status DC Acetaminophen (Tylenol) 650 mg PRN Q6HRS PRN PO MILD PAIN / TEMP Last administered on 06/29/16 03:46; Start 06/28/16 at 08:30 Vancomycin HCl 1 each 1 each PRN DAILY PRN MC SEE COMMENTS Last administered on 06/28/16 13:25; Start 06/28/16 at 09:00; Stop 06/28/16 at 14:12; Status DC Meropenem 500 mg/ Sodium Chloride 50 ml @ 100 mls/hr Q6HRS IV Last administered on 06/30/16 05:42; Start 06/28/16 at 09:30 Azithromycin 250 ml @ 250 mls/hr 1X ONCE IV Last administered on 06/28/16 11: 13; Start 06/28/16 at 09:30; Stop 06/28/16 at 10:29; Status DC Vancomycin HCl/ Sodium Chloride (Iv Sodium Chloride 0.9% 500ml Bag) 500 ml @ 250 mls/hr 1X ONCE IV Last administered on 06/28/16 12:29; Start 06/28/16 at 10 :00; Stop 06/28/16 at 11:59; Status DC Vancomycin HCl 1 each 1 each 1X ONCE MC ; Start 06/29/16 at 23:30; Stop 06/29/16 at 23:30; Status DC Vancomycin HCl/ Sodium Chloride (Iv Sodium Chloride 0.9% 250ml) 250 ml @ 166.667 mls/hr Q12H IV ; Start 06/29/16 at 00:00; Stop 06/29/16 at 00:00; Status DC Acetaminophen (Tylenol) 500 mg PRN Q6HRS PRN PO MILD PAIN / TEMP; Start at 14:15 Linezolid (Zyvox) 600 mg BID PO Last administered on 06/30/16 07:59; Start 06/28 at 14:30 Alprazolam (Xanax) 1 mg PRN QID PRN PO ANXIETY / AGITATION; Start 06/28/16 at 14 :15; Stop 06/28/16 at 22:32; Status DC Ondansetron HCl (Zofran Odt) 4 mg PRN Q8HRS PRN PO nausea; Start 06/28/16 at 14: 15 Oxycodone HCl (Roxicodone) 15 mg PRN Q4HRS PRN PO PAIN; Start 06/28/16 at 14:15 ; Stop 06/28/16 at 14:34; Status DC Docusate Sodium (Colace) 200 mg PRN BID PRN PO CONSTIPATION; Start 06/28/16 at 21:00 Non-Formulary Medication 10 mg HS PRN PO INSOMNIA; Start 06/28/16 at 14:15; Status UNV Fentanyl Citrate (Fentanyl 2ml Vial) 50 mcg PRN Q2HR PRN IV PAIN Last administered on 06/29/16 10:06; Start 06/28/16 at 14:45; Stop 06/29/16 at 11:13; Status DC Morphine Sulfate 4 mg PRN Q2HR PRN IV PAIN; Start 06/28/16 at 16:30; Stop at 22:32; Status DC Lidocaine (Lidoderm) 1 patch DAILY TD Last administered on 06/28/16 20:16; Start 06/28/16 at 19:00; Stop 06/28/16 at 22:32; Status DC Diazepam (Valium) 5 mg 1X ONCE PO Last administered on 06/28/16 22:53; Start 06/28/16 at 22:45; Stop 06/28/16 at 22:46; Status DC Diazepam (Valium) 5 mg PRN Q6HRS PRN IV SEIZURES; Start 06/28/16 at 22:30; Stop 06/29/16 at 11:13; Status DC Diazepam 5 mg 5 mg Q8H PO ; Start 06/28/16 at 22:30; Stop 06/28/16 at 22:32; Status DC Amino Acids/ Electrolytes/ Dextrose (Clinimix E 4.25%-5% Solution) 1,000 ml @ 80 mls/hr [id number] IV Last administered on 06/30/16 00:05; Start 06/28/16 at 23: 00 Oxycodone HCl (Roxicodone) 30 mg Q4HRS PO Last administered on 06/30/16 07:59; Start 06/29/16 at 12:00 Diazepam (Valium) 5 mg Q6HRS PO Last administered on 06/30/16 05:41; Start 06/29 at 12:00 Belladonna Alkaloids/Opium (B & O) 1 supp PRN Q12HR PRN [place] PAIN Last administered on 06/30/16 08:04; Start 06/29/16 at 11:15 Phenazopyridine HCl (Pyridium) 200 mg PRN TID PRN PO URINARY PAIN Last administered on 06/30/16 08:04; Start 06/29/16 at 16:00 Fentanyl Citrate (Fentanyl 2ml Vial) 50 mcg PRN Q2HR PRN IV PAIN Last administered on 06/29/16 19:25; Start 06/29/16 at 19:15 Active Scripts Active Reported Ambien (Zolpidem Tartrate) 10 Mg Tablet 10 Mg PO HS PRN Zofran Odt (Ondansetron) 4 Mg Tab.rapdis 1 Tab SL Q8HRS Oxycodone Hcl 30 Mg Tablet 15 Mg PO PRN Q4HRS PRN Docusate Sodium 100 Mg Tablet 200 Mg PO BID PRN Alprazolam 1 Mg Tablet 1 Tab PO QID PRN Vitals/I & O Vital Sign - Last 24 Hours 06/29/16 06/29/16 06/29/16 06/29/16 10:36 11:05 14:43 15:39 Temp 97.9 97.9 97.9 97.9 Pulse 99 96 Resp 18 B/P 131/77 133/74 Pulse Ox 94 95 95 O2 Delivery Nasal Cannula Nasal Cannula Nasal Cannula Nasal Cannula O2 Flow Rate 2.0 2.0 2.0 06/29/16 06/29/16 06/29/16 06/29/16 19:00 19:25 19:55 20:00 Temp 98.4 98.4 Pulse 94 Resp 18 B/P 99/70 Pulse Ox 95 95 95 O2 Delivery Nasal Cannula Nasal Cannula Nasal Cannula Nasal Cannula O2 Flow Rate 2.0 2.0 2.0 2.0 06/29/16 06/29/16 06/30/16 06/30/16 20:11 23:00 00:04 04:04 Temp 98.3 98.3 Pulse 94 Resp 18 B/P 96/59 Pulse Ox 95 93 93 93 O2 Delivery Nasal Cannula Nasal Cannula Nasal Cannula Nasal Cannula O2 Flow Rate 2.0 2.0 2.0 2.0 06/30/16 06/30/16 06/30/16 05:04 07:00 08:00 Temp 98.2 98.2 Pulse 83 Resp 12 B/P 86/56 Pulse Ox 93 93 O2 Delivery Nasal Cannula Nasal Cannula Nasal Cannula O2 Flow Rate 2.0 2.0 2.0 Intake and Output 06/29/16 06/29/16 06/30/16 15:00 23:00 07:00 Intake Total 240 ml 425 ml 1035 ml Output Total 500 ml 475 ml Balance -260 ml -50 ml 1035 ml SAMREEN HERBERT MD Jun 30, 2016 10:34
[2016-06-30 11:00] VITALS: BP 95/61
--- NOTE | 2016-06-30 13:57 | PDOC ---
Infectious Disease Note Subjective Subjective c/o back pain, leg spasms Appetite diminished No further hematuria ROS ROS GEN: Denies fevers, chills, sweats CV: Denies chest pain RESP: Denies shortness of air, cough GI: Denies n/v/d NEURO: Denies confusion, dizziness MSK: Denies weakness, joint pain/swelling Vital Sign Vital Signs Vital Signs Date Time Temp Pulse Resp B/P Pulse Ox O2 Delivery O2 Flow Rate FiO2 06/30/16 11:47 Nasal Cannula 06/30/16 11:00 97.5 87 14 95/61 94 2.0 97.5 Physical Exam PHYSICAL EXAM GENERAL: Sitting up in bed, NAD LUNGS: Clear HEART: S1S2, no gallop, no murmur ABD: Soft, NT EXT: No edema, no cyanosis QUOTATION CHECKER: Alert, oriented x 3, no focal neurologic deficit SKIN: No rash IV: ok Labs Lab MRI lumbar spine FINDINGS: Alignment and curvature are within normal limits. There is no compression fracture or deformity. Vertebral body heights are well maintained. Bone marrow signal is normal apart from a benign hemangioma at L2. There is mild multilevel degenerative disc height loss. The conus terminates normally at the level of L1. 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 Level by level analysis demonstrates no significant central spinal or neural foraminal stenosis. There has been previous bilateral sacroplasty. Impression: - Negative for central spinal or neural foraminal stenosis. - Negative for compression fracture or malalignment. - Choledochal ectasia. Correlate for history of cholecystectomy. Micro BLOOD CULTURE Preliminary NO GROWTH AFTER 2 DAYS URINE CULTURE RES 1 Final Comment No growth in 48 hours. Objective Assessment ? Sepsis Fever - better Leukocytosis - better Sinus congestion - CXR and CT reviewed. Nonspecific ground glass Hematuria, improved Back pain N/V Plan Plan of Care Zyvox and meropenem Await urology f/u and scope hold further Azithromycin D/w Attending Co-Sign The patient was seen and interviewed as well as examined at the bedside. The chart was reviewed. The case was discussed. Agree with the plan of care. CASE MCELROY APRN Jun 30, 2016 13:57 JARETH CHRISTIAN MD Jun 30, 2016 16:01
--- NOTE | 2016-06-30 14:10 | PDOC ---
PROGRESS NOTES Chief Complaint Chief Complaint 1. hematuria, gross - no recurrence in house 2. Pelvic pain 3. Acute on chronic pain, back pain, 4. no uTI - Urine cx neg 5. Elevated lactate, flu negative, leukocytosis 6. Hx lung CA with lobectomy 7. 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 Emphysematous lung changes 9. Possibly cystitis, interstitial 10. Bladder spasm 12 Depression NOS 13. NO evidence of kidney stone (CT or US) History of Present Illness History of Present Illness 40 mins in room alone Relays stories of pain, bladder spasms, gross hematuria (none seen here) Pain mx, physiatry and urology on board [facility] nd VS stable CT and US neg for stones Im unsure if there are indeed plans of cysto as relayed by pt and to me ALready on pain meds and med for bladder spasms Long stories about all her pain, past medical etc URINE CX IS NEG - on meropenem by ID IV q8 PLAn: MIght be able to dc meropenem since urine cx neg - defer to ID PT recs home independent - yet she relays difficulty in doing ADLs Dw physiatry - planned for back brace Time 40 mins in room alone Vitals Vitals Vital Signs Date Time Temp Pulse Resp B/P Pulse Ox O2 Delivery O2 Flow Rate FiO2 06/30/16 11:47 Nasal Cannula 06/30/16 11:00 97.5 87 14 95/61 94 2.0 97.5 Physical Exam General: Alert, Oriented X3, Cooperative, No acute distress Heart: Regular rate, Normal S1, Normal S2, No murmurs Lungs: Wheezing Abdomen: Normal bowel sounds, Soft, No tenderness Extremities: No clubbing, No cyanosis, No edema, Normal pulses, No tenderness/ swelling Skin: No rashes, No breakdown Review of Systems Review of Systems pain all over, back pain, pelvic pain, bladder spasms, no soa, cp etc Comment Review of Relevant I have reviewed the following items kristen (where applicable) has been applied. Labs Laboratory Tests Test 06/28/16 19:30 06/29/16 05:45 Erythrocyte Sedimentation Rate 4 (0-25) White Blood Count 6.8x10^3/uL (4.0-11.0) Red Blood Count 3.54x10^6/uL (3.50-5.40) Hemoglobin 10.6g/dL (12.0-15.5) Hematocrit 32.3% (36.0-47.0) Mean Corpuscular Volume 92fL (79-100) Mean Corpuscular Hemoglobin 30pg (25-35) Mean Corpuscular Hemoglobin Concent 33g/dL (31-37) Red Cell Distribution Width 13.3% (11.5-14.5) Platelet Count 197x10^3/uL (140-400) Neutrophils (%) (Auto) 67% (31-73) Lymphocytes (%) (Auto) 22% (24-48) Monocytes (%) (Auto) 10% (0-9) Eosinophils (%) (Auto) 2% (0-3) Basophils (%) (Auto) 0% (0-3) Neutrophils # (Auto) 4.6x10^3uL (1.8-7.7) Lymphocytes # (Auto) 1.5x10^3/uL (1.0-4.8) Monocytes # (Auto) 0.7x10^3/uL (0.0-1.1) Eosinophils # (Auto) 0.1x10^3/uL (0.0-0.7) Basophils # (Auto) 0.0x10^3/uL (0.0-0.2) Sodium Level 140mmol/L (136-145) Potassium Level 3.9mmol/L (3.5-5.1) Chloride Level 105mmol/L (98-107) Carbon Dioxide Level 34mmol/L (21-32) Anion Gap 1 (6-14) Blood Urea Nitrogen 6mg/dL (7-20) Creatinine 0.6mg/dL (0.6-1.0) Estimated GFR (Cockcroft-Gault) 105.0 Glucose Level 145mg/dL (70-99) Calcium Level 8.3mg/dL (8.5-10.1) Microbiology 06/28/16 Blood Culture - Preliminary, Resulted NO GROWTH AFTER 2 DAYS 06/27/16 Urine Culture - Final, Complete 06/27/16 Urine Culture Result 1 (ASHLI) - Final, Complete Medications Current Medications Fentanyl Citrate (Fentanyl 2ml Vial) 50 mcg 1X ONCE IV Last administered on t 17:22; Start 06/27/16 at 16:45; Stop 06/27/16 at 16:46; Status DC Phenazopyridine HCl 200 mg 200 mg PRN Q6HRS PRN PO URINARY PAIN Last administered on 06/28/16 16:51; Start 06/27/16 at 16:45; Stop 06/28/16 at 22:32; Status DC Ceftriaxone Sodium 1 gm/ Sodium Chloride 50 ml @ 100 mls/hr Q24H IV Last administered on 06/27/16 17:33; Start 06/27/16 at 17:00; Stop 06/28/16 at 08:58; Status DC Fentanyl Citrate 30 ml @ 0 mls/hr CONT PRN PRN IV PROTOCOL Last administered on 06/27/16 19:06; Start 06/27/16 at 17:30; Stop 06/28/16 at 14:34; Status DC Sodium Chloride (Iv Sodium Chloride 0.9% 1000ml Bag) 1,000 ml @ 100 mls/hr Q10H IV Last administered on 06/28/16 20:16; Start 06/27/16 at 18:45; Stop at 22:31; Status DC Alprazolam (Xanax) 1 mg PRN Q6HRS PRN PO ANXIETY / AGITATION Last administered on 06/28/16 04:23; Start 06/27/16 at 21:30; Stop 06/28/16 at 22:32; Status DC Docusate Sodium (Colace) 100 mg [id number] PO Last administered on 06/29/16 18:01; Start 06/28/16 at 07:00 Ondansetron HCl (Zofran Odt) 8 mg PRN Q6HRS PRN PO NAUSEA/VOMITING Last administered on 06/28/16 20:15; Start 06/27/16 at 21:30 Zolpidem Tartrate (Ambien) 5 mg PRN QHS PRN PO INSOMNIA, MAY REPEAT IN 1HR Last administered on 06/29/16 22:02; Start 06/27/16 at 21:30 Oxycodone HCl (Roxicodone) 30 mg PRN Q4HRS PRN PO PAIN Last administered on 06/28 21:16; Start 06/27/16 at 21:30; Stop 06/28/16 at 22:32; Status DC Fentanyl Citrate (Fentanyl 2ml Vial) 50 mcg 1X ONCE IV Last administered on 08:40; Start 06/28/16 at 09:00; Stop 06/28/16 at 09:01; Status DC Metoprolol Tartrate (Lopressor) 25 mg 1X ONCE PO ; Start 06/28/16 at 09:00; Stop 06/28/16 at 09:01; Status DC Acetaminophen (Tylenol) 650 mg PRN Q6HRS PRN PO MILD PAIN / TEMP Last administered on 06/29/16 03:46; Start 06/28/16 at 08:30 Vancomycin HCl 1 each 1 each PRN DAILY PRN MC SEE COMMENTS Last administered on 06/28/16 13:25; Start 06/28/16 at 09:00; Stop 06/28/16 at 14:12; Status DC Meropenem 500 mg/ Sodium Chloride 50 ml @ 100 mls/hr Q6HRS IV Last administered on 06/30/16 11:48; Start 06/28/16 at 09:30 Azithromycin 250 ml @ 250 mls/hr 1X ONCE IV Last administered on 06/28/16 11: 13; Start 06/28/16 at 09:30; Stop 06/28/16 at 10:29; Status DC Vancomycin HCl/ Sodium Chloride (Iv Sodium Chloride 0.9% 500ml Bag) 500 ml @ 250 mls/hr 1X ONCE IV Last administered on 06/28/16 12:29; Start 06/28/16 at 10 :00; Stop 06/28/16 at 11:59; Status DC Vancomycin HCl 1 each 1 each 1X ONCE MC ; Start 06/29/16 at 23:30; Stop 06/29/16 at 23:30; Status DC Vancomycin HCl/ Sodium Chloride (Iv Sodium Chloride 0.9% 250ml) 250 ml @ 166.667 mls/hr Q12H IV ; Start 06/29/16 at 00:00; Stop 06/29/16 at 00:00; Status DC Acetaminophen (Tylenol) 500 mg PRN Q6HRS PRN PO MILD PAIN / TEMP; Start at 14:15 Linezolid (Zyvox) 600 mg BID PO Last administered on 06/30/16 07:59; Start 06/28 at 14:30 Alprazolam (Xanax) 1 mg PRN QID PRN PO ANXIETY / AGITATION; Start 06/28/16 at 14 :15; Stop 06/28/16 at 22:32; Status DC Ondansetron HCl (Zofran Odt) 4 mg PRN Q8HRS PRN PO nausea; Start 06/28/16 at 14: 15 Oxycodone HCl (Roxicodone) 15 mg PRN Q4HRS PRN PO PAIN; Start 06/28/16 at 14:15 ; Stop 06/28/16 at 14:34; Status DC Docusate Sodium (Colace) 200 mg PRN BID PRN PO CONSTIPATION; Start 06/28/16 at 21:00 Non-Formulary Medication 10 mg HS PRN PO INSOMNIA; Start 06/28/16 at 14:15; Status UNV Fentanyl Citrate (Fentanyl 2ml Vial) 50 mcg PRN Q2HR PRN IV PAIN Last administered on 06/29/16 10:06; Start 06/28/16 at 14:45; Stop 06/29/16 at 11:13; Status DC Morphine Sulfate 4 mg PRN Q2HR PRN IV PAIN; Start 06/28/16 at 16:30; Stop at 22:32; Status DC Lidocaine (Lidoderm) 1 patch DAILY TD Last administered on 06/28/16 20:16; Start 06/28/16 at 19:00; Stop 06/28/16 at 22:32; Status DC Diazepam (Valium) 5 mg 1X ONCE PO Last administered on 06/28/16 22:53; Start 06/28/16 at 22:45; Stop 06/28/16 at 22:46; Status DC Diazepam (Valium) 5 mg PRN Q6HRS PRN IV SEIZURES; Start 06/28/16 at 22:30; Stop 06/29/16 at 11:13; Status DC Diazepam 5 mg 5 mg Q8H PO ; Start 06/28/16 at 22:30; Stop 06/28/16 at 22:32; Status DC Amino Acids/ Electrolytes/ Dextrose (Clinimix E 4.25%-5% Solution) 1,000 ml @ 80 mls/hr [id number] IV Last administered on 06/30/16 00:05; Start 06/28/16 at 23: 00 Oxycodone HCl (Roxicodone) 30 mg Q4HRS PO Last administered on 06/30/16 11:47; Start 06/29/16 at 12:00 Diazepam (Valium) 5 mg Q6HRS PO Last administered on 06/30/16 11:47; Start 06/29 at 12:00 Belladonna Alkaloids/Opium (B & O) 1 supp PRN Q12HR PRN IA PAIN Last administered on 06/30/16 08:04; Start 06/29/16 at 11:15 Phenazopyridine HCl (Pyridium) 200 mg PRN TID PRN PO URINARY PAIN Last administered on 06/30/16 08:04; Start 06/29/16 at 16:00 Fentanyl Citrate (Fentanyl 2ml Vial) 50 mcg PRN Q2HR PRN IV PAIN Last administered on 06/29/16 19:25; Start 06/29/16 at 19:15 Active Scripts Active Reported Ambien (Zolpidem Tartrate) 10 Mg Tablet 10 Mg PO HS PRN Zofran Odt (Ondansetron) 4 Mg Tab.rapdis 1 Tab SL Q8HRS Oxycodone Hcl 30 Mg Tablet 15 Mg PO PRN Q4HRS PRN Docusate Sodium 100 Mg Tablet 200 Mg PO BID PRN Alprazolam 1 Mg Tablet 1 Tab PO QID PRN Vitals/I & O Vital Sign - Last 24 Hours 06/29/16 06/29/16 06/29/16 06/29/16 14:43 15:39 19:00 19:25 Temp 97.9 98.4 97.9 98.4 Pulse 96 94 Resp 18 B/P 133/74 99/70 Pulse Ox 95 95 95 O2 Delivery Nasal Cannula Nasal Cannula Nasal Cannula Nasal Cannula O2 Flow Rate 2.0 2.0 2.0 06/29/16 06/29/16 06/29/16 06/29/16 19:55 20:00 20:11 23:00 Temp 98.3 98.3 Pulse 94 Resp 18 B/P 96/59 Pulse Ox 95 95 93 O2 Delivery Nasal Cannula Nasal Cannula Nasal Cannula Nasal Cannula O2 Flow Rate 2.0 2.0 2.0 2.0 06/30/16 06/30/16 06/30/16 06/30/16 00:04 04:04 05:04 07:00 Temp 98.2 98.2 Pulse 83 Resp 12 B/P 86/56 Pulse Ox 93 93 93 93 O2 Delivery Nasal Cannula Nasal Cannula Nasal Cannula Nasal Cannula O2 Flow Rate 2.0 2.0 2.0 2.0 06/30/16 06/30/16 06/30/16 08:00 11:00 11:47 Temp 97.5 97.5 Pulse 87 Resp 14 B/P 95/61 Pulse Ox 94 O2 Delivery Nasal Cannula Nasal Cannula Nasal Cannula O2 Flow Rate 2.0 2.0 Intake and Output 06/29/16 06/29/16 06/30/16 15:00 23:00 07:00 Intake Total 240 ml 425 ml 1035 ml Output Total 500 ml 475 ml Balance -260 ml -50 ml 1035 ml FREEDOM MCDOWELL MD Jun 30, 2016 14:10
[2016-06-30 15:00] VITALS: BP 92/62
--- NOTE | 2016-06-30 16:42 | PDOC ---
Provider Note Provider Note AndPain appears to be in better control ion scheduled narcotics and muscle relaxants. B&O also seems to help. Await Dr. Roach's decision as to when he would like to stop the IV antibiotics. Urine culture was negative. She has had no further haematuria. Await Dr. Calles's decision as to whether he would like to dd cystoscopy as an inpatient or outpatient. Patient has expressed a desire that she would like to do PT and OT as an outpatient. She has also accepted psychiatric help either as inpatient or outpatient. has offered to ambulate her in the room and out and the in the hallway. Physical therapy has signed off. Probably home on or 10 when above arrangements have been made. SARAH LOPEZ MD Jun 30, 2016 16:42
[2016-06-30 19:00] VITALS: BP 95/64
[2016-06-30] MEDS: ZOLPIDEM 5 MG TABLET. PO PRN (21:58)
[2016-06-30 23:00] VITALS: BP 88/56
[2016-07-01] MEDS: DIAZEPAM 5 MG TABLET PO SCH ×4 (00:04→17:29)
[2016-07-01] MEDS: OXYCODONE IR 30 MG TABLET. PO SCH ×6 (00:04→20:25)
[2016-07-01] MEDS: MEROPENEM 500 MG in IV NORMAL SALINE 50ML 50 ML IV SCH ×3 (00:04→12:00)
[2016-07-01] MEDS: DOCUSATE SODIUM 100 MG CAPSULE. PO SCH ×2 (06:18→17:29)
[2016-07-01] MEDS: FENTANYL PF 100 MCG/2 ML VIAL. IV PRN (06:18)
[2016-07-01] MEDS: AA 4.25%/CALCIUM/LYTES/D5W 1,000 ML IV SCH (06:19)
[2016-07-01] MEDS: LINEZOLID 600 MG TABLET PO SCH (08:03)
[2016-07-01 08:21] VITALS: BP 98/62
[2016-07-01] MEDS: OPIUM/BELLADONNA 30/16.2MG SUPP.RECT. PR PRN (09:00)
[2016-07-01 10:53] VITALS: BP 122/77
--- NOTE | 2016-07-01 12:03 | PDOC ---
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 clean Labs Micro BLOOD CULTURE Preliminary NO GROWTH AFTER 3 DAYS URINE CULTURE RES 1 Final Comment No growth in 48 hours. Objective Assessment ? Sepsis Fever - better Leukocytosis - better Sinus congestion - CXR and CT reviewed. Nonspecific ground glass Hematuria. Resolved Back pain N/V. better Plan Plan of Care Zyvox and meropenem wean soon Await urology f/u and scope D/w Attending Co-Sign The patient was seen and interviewed as well as examined at the bedside. The chart was reviewed. The case was discussed. Agree with the plan of care. d/c antibiotics cysto planned out pt CASE MCELROY APRN Jul 01, 2016 12:03 JARETH CHRISTIAN MD Jul 01, 2016 14:38
[2016-07-01 13:41] LABS: ALBUMIN 2.9 g/dL (3.4-5.0); CALCIUM 8.6 mg/dL (8.5-10.1); CREATININE 0.6 mg/dL (0.6-1.0); TOTAL BILIRUBIN 0.2 mg/dL (0.2-1.0); TOTAL PROTEIN 5.8 g/dL (6.4-8.2)
[2016-07-01 14:47] VITALS: BP 115/75
--- NOTE | 2016-07-01 15:23 | PDOC ---
PROGRESS NOTES Chief Complaint Chief Complaint 1. hematuria, gross - no recurrence in house 2. Pelvic pain 3. Acute on chronic pain, back pain, 4. no uTI - Urine cx neg 5. Elevated lactate, flu negative, leukocytosis 6. Hx lung CA with lobectomy 7. 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 Emphysematous lung changes 9. Possibly cystitis, interstitial 10. Bladder spasm 12 Depression NOS 13. NO evidence of kidney stone (CT or US) History of Present Illness History of Present Illness Same EARLIER ENTRY: 40 mins in room alone Relays stories of pain, bladder spasms, gross hematuria (none seen here) Pain mx, physiatry and urology on board [facility] nd VS stable CT and US neg for stones Im unsure if there are indeed plans of cysto as relayed by pt and to me ALready on pain meds and med for bladder spasms Long stories about all her pain, past medical etc URINE CX IS NEG - on meropenem by ID IV q8 PLAn: Ok for home if no plans of cysto EARLIER ENTRY: MIght be able to dc meropenem since urine cx neg - defer to ID PT recs home independent - yet she relays difficulty in doing ADLs Dw physiatry - planned for back brace Time 40 mins in room alone Vitals Vitals Vital Signs Date Time Temp Pulse Resp B/P Pulse Ox O2 Delivery O2 Flow Rate FiO2 07/01/16 14:47 98.1 103 18 115/75 91 Room Air 98.1 07/01/16 12:53 2.0 Physical Exam General: Alert, Oriented X3, Cooperative, No acute distress Heart: Regular rate, Normal S1, Normal S2, No murmurs Lungs: Wheezing Abdomen: Normal bowel sounds, Soft, No tenderness Extremities: No clubbing, No cyanosis, No edema, Normal pulses, No tenderness/ swelling Skin: No rashes, No breakdown Labs LABS Laboratory Tests Test 07/01/16 04:00 07/01/16 13:43 Sodium Level 141mmol/L (136-145) Potassium Level 4.0mmol/L (3.5-5.1) Chloride Level 101mmol/L (98-107) Carbon Dioxide Level 34mmol/L (21-32) Anion Gap 6 (6-14) Blood Urea Nitrogen 12mg/dL (7-20) Creatinine 0.6mg/dL (0.6-1.0) Estimated GFR (Cockcroft-Gault) 105.0 BUN/Creatinine Ratio 20 (6-20) Glucose Level 76mg/dL (70-99) Calcium Level 8.6mg/dL (8.5-10.1) Magnesium Level 2.1mg/dL (1.8-2.4) Total Bilirubin 0.2mg/dL (0.2-1.0) Aspartate Amino Transf (AST/SGOT) 16U/L (15-37) Alanine Aminotransferase (ALT/SGPT) 30U/L (14-59) Alkaline Phosphatase 47U/L (46-116) Total Protein 5.8g/dL (6.4-8.2) Albumin 2.9g/dL (3.4-5.0) Albumin/Globulin Ratio 1.0 (1.0-1.7) Thyroid Stimulating Hormone (TSH) 1.460uIU/mL (0.358-3.74) Lactic Acid Level 0.8mmol/L (0.4-2.0) Review of Systems Review of Systems pain all over, anxiety, no d/n/v Comment Review of Relevant I have reviewed the following items kristen (where applicable) has been applied. Labs Laboratory Tests Test 07/01/16 04:00 07/01/16 13:43 Sodium Level 141mmol/L (136-145) Potassium Level 4.0mmol/L (3.5-5.1) Chloride Level 101mmol/L (98-107) Carbon Dioxide Level 34mmol/L (21-32) Anion Gap 6 (6-14) Blood Urea Nitrogen 12mg/dL (7-20) Creatinine 0.6mg/dL (0.6-1.0) Estimated GFR (Cockcroft-Gault) 105.0 BUN/Creatinine Ratio 20 (6-20) Glucose Level 76mg/dL (70-99) Calcium Level 8.6mg/dL (8.5-10.1) Magnesium Level 2.1mg/dL (1.8-2.4) Total Bilirubin 0.2mg/dL (0.2-1.0) Aspartate Amino Transf (AST/SGOT) 16U/L (15-37) Alanine Aminotransferase (ALT/SGPT) 30U/L (14-59) Alkaline Phosphatase 47U/L (46-116) Total Protein 5.8g/dL (6.4-8.2) Albumin 2.9g/dL (3.4-5.0) Albumin/Globulin Ratio 1.0 (1.0-1.7) Thyroid Stimulating Hormone (TSH) 1.460uIU/mL (0.358-3.74) Lactic Acid Level 0.8mmol/L (0.4-2.0) Laboratory Tests Test 07/01/16 04:00 07/01/16 13:43 Sodium Level 141mmol/L (136-145) Potassium Level 4.0mmol/L (3.5-5.1) Chloride Level 101mmol/L (98-107) Carbon Dioxide Level 34mmol/L (21-32) Anion Gap 6 (6-14) Blood Urea Nitrogen 12mg/dL (7-20) Creatinine 0.6mg/dL (0.6-1.0) Estimated GFR (Cockcroft-Gault) 105.0 BUN/Creatinine Ratio 20 (6-20) Glucose Level 76mg/dL (70-99) Calcium Level 8.6mg/dL (8.5-10.1) Magnesium Level 2.1mg/dL (1.8-2.4) Total Bilirubin 0.2mg/dL (0.2-1.0) Aspartate Amino Transf (AST/SGOT) 16U/L (15-37) Alanine Aminotransferase (ALT/SGPT) 30U/L (14-59) Alkaline Phosphatase 47U/L (46-116) Total Protein 5.8g/dL (6.4-8.2) Albumin 2.9g/dL (3.4-5.0) Albumin/Globulin Ratio 1.0 (1.0-1.7) Thyroid Stimulating Hormone (TSH) 1.460uIU/mL (0.358-3.74) Lactic Acid Level 0.8mmol/L (0.4-2.0) Microbiology 06/28/16 Blood Culture - Preliminary, Resulted NO GROWTH AFTER 3 DAYS 06/27/16 Urine Culture - Final, Complete 06/27/16 Urine Culture Result 1 (ASHLI) - Final, Complete Medications Current Medications Fentanyl Citrate (Fentanyl 2ml Vial) 50 mcg 1X ONCE IV Last administered on t 17:22; Start 06/27/16 at 16:45; Stop 06/27/16 at 16:46; Status DC Phenazopyridine HCl 200 mg 200 mg PRN Q6HRS PRN PO URINARY PAIN Last administered on 06/28/16 16:51; Start 06/27/16 at 16:45; Stop 06/28/16 at 22:32; Status DC Ceftriaxone Sodium 1 gm/ Sodium Chloride 50 ml @ 100 mls/hr Q24H IV Last administered on 06/27/16 17:33; Start 06/27/16 at 17:00; Stop 06/28/16 at 08:58; Status DC Fentanyl Citrate 30 ml @ 0 mls/hr CONT PRN PRN IV PROTOCOL Last administered on 06/27/16 19:06; Start 06/27/16 at 17:30; Stop 06/28/16 at 14:34; Status DC Sodium Chloride (Iv Sodium Chloride 0.9% 1000ml Bag) 1,000 ml @ 100 mls/hr Q10H IV Last administered on 06/28/16 20:16; Start 06/27/16 at 18:45; Stop at 22:31; Status DC Alprazolam (Xanax) 1 mg PRN Q6HRS PRN PO ANXIETY / AGITATION Last administered on 06/28/16 04:23; Start 06/27/16 at 21:30; Stop 06/28/16 at 22:32; Status DC Docusate Sodium (Colace) 100 mg [id number] PO Last administered on 07/01/16 06:18; Start 06/28/16 at 07:00 Ondansetron HCl (Zofran Odt) 8 mg PRN Q6HRS PRN PO NAUSEA/VOMITING Last administered on 06/28/16 20:15; Start 06/27/16 at 21:30 Zolpidem Tartrate (Ambien) 5 mg PRN QHS PRN PO INSOMNIA, MAY REPEAT IN 1HR Last administered on 06/30/16 21:58; Start 06/27/16 at 21:30 Oxycodone HCl (Roxicodone) 30 mg PRN Q4HRS PRN PO PAIN Last administered on 06/28 21:16; Start 06/27/16 at 21:30; Stop 06/28/16 at 22:32; Status DC Fentanyl Citrate (Fentanyl 2ml Vial) 50 mcg 1X ONCE IV Last administered on 08:40; Start 06/28/16 at 09:00; Stop 06/28/16 at 09:01; Status DC Metoprolol Tartrate (Lopressor) 25 mg 1X ONCE PO ; Start 06/28/16 at 09:00; Stop 06/28/16 at 09:01; Status DC Acetaminophen (Tylenol) 650 mg PRN Q6HRS PRN PO MILD PAIN / TEMP Last administered on 06/29/16 03:46; Start 06/28/16 at 08:30 Vancomycin HCl 1 each 1 each PRN DAILY PRN MC SEE COMMENTS Last administered on 06/28/16 13:25; Start 06/28/16 at 09:00; Stop 06/28/16 at 14:12; Status DC Meropenem 500 mg/ Sodium Chloride 50 ml @ 100 mls/hr Q6HRS IV Last administered on 07/01/16 06:18; Start 06/28/16 at 09:30; Stop 07/01/16 at 14:39; Status DC Azithromycin 250 ml @ 250 mls/hr 1X ONCE IV Last administered on 06/28/16 11: 13; Start 06/28/16 at 09:30; Stop 06/28/16 at 10:29; Status DC Vancomycin HCl/ Sodium Chloride (Iv Sodium Chloride 0.9% 500ml Bag) 500 ml @ 250 mls/hr 1X ONCE IV Last administered on 06/28/16 12:29; Start 06/28/16 at 10 :00; Stop 06/28/16 at 11:59; Status DC Vancomycin HCl 1 each 1 each 1X ONCE MC ; Start 06/29/16 at 23:30; Stop 06/29/16 at 23:30; Status DC Vancomycin HCl/ Sodium Chloride (Iv Sodium Chloride 0.9% 250ml) 250 ml @ 166.667 mls/hr Q12H IV ; Start 06/29/16 at 00:00; Stop 06/29/16 at 00:00; Status DC Acetaminophen (Tylenol) 500 mg PRN Q6HRS PRN PO MILD PAIN / TEMP; Start at 14:15; Stop 06/30/16 at 16:51; Status DC Linezolid (Zyvox) 600 mg BID PO Last administered on 07/01/16 08:03; Start 06/28 at 14:30; Stop 07/01/16 at 14:39; Status DC Alprazolam (Xanax) 1 mg PRN QID PRN PO ANXIETY / AGITATION; Start 06/28/16 at 14 :15; Stop 06/28/16 at 22:32; Status DC Ondansetron HCl (Zofran Odt) 4 mg PRN Q8HRS PRN PO nausea; Start 06/28/16 at 14: 15 Oxycodone HCl (Roxicodone) 15 mg PRN Q4HRS PRN PO PAIN; Start 06/28/16 at 14:15 ; Stop 06/28/16 at 14:34; Status DC Docusate Sodium (Colace) 200 mg PRN BID PRN PO CONSTIPATION; Start 06/28/16 at 21:00 Non-Formulary Medication 10 mg HS PRN PO INSOMNIA; Start 06/28/16 at 14:15; Status UNV Fentanyl Citrate (Fentanyl 2ml Vial) 50 mcg PRN Q2HR PRN IV PAIN Last administered on 06/29/16 10:06; Start 06/28/16 at 14:45; Stop 06/29/16 at 11:13; Status DC Morphine Sulfate 4 mg PRN Q2HR PRN IV PAIN; Start 06/28/16 at 16:30; Stop at 22:32; Status DC Lidocaine (Lidoderm) 1 patch DAILY TD Last administered on 06/28/16 20:16; Start 06/28/16 at 19:00; Stop 06/28/16 at 22:32; Status DC Diazepam (Valium) 5 mg 1X ONCE PO Last administered on 06/28/16 22:53; Start 06/28/16 at 22:45; Stop 06/28/16 at 22:46; Status DC Diazepam (Valium) 5 mg PRN Q6HRS PRN IV SEIZURES; Start 06/28/16 at 22:30; Stop 06/29/16 at 11:13; Status DC Diazepam 5 mg 5 mg Q8H PO ; Start 06/28/16 at 22:30; Stop 06/28/16 at 22:32; Status DC Amino Acids/ Electrolytes/ Dextrose (Clinimix E 4.25%-5% Solution) 1,000 ml @ 80 mls/hr [id number] IV Last administered on 07/01/16 06:19; Start 06/28/16 at 23: 00 Oxycodone HCl (Roxicodone) 30 mg Q4HRS PO Last administered on 07/01/16 11:53; Start 06/29/16 at 12:00 Diazepam (Valium) 5 mg Q6HRS PO Last administered on 07/01/16 11:53; Start 06/29 at 12:00 Belladonna Alkaloids/Opium (B & O) 1 supp PRN Q12HR PRN [place] PAIN Last administered on 07/01/16 09:00; Start 06/29/16 at 11:15 Phenazopyridine HCl (Pyridium) 200 mg PRN TID PRN PO URINARY PAIN Last administered on 06/30/16 18:14; Start 06/29/16 at 16:00 Fentanyl Citrate (Fentanyl 2ml Vial) 50 mcg PRN Q2HR PRN IV PAIN Last administered on 07/01/16 06:18; Start 06/29/16 at 19:15 Active Scripts Active Reported Ambien (Zolpidem Tartrate) 10 Mg Tablet 10 Mg PO HS PRN Zofran Odt (Ondansetron) 4 Mg Tab.rapdis 1 Tab SL Q8HRS Oxycodone Hcl 30 Mg Tablet 15 Mg PO PRN Q4HRS PRN Docusate Sodium 100 Mg Tablet 200 Mg PO BID PRN Alprazolam 1 Mg Tablet 1 Tab PO QID PRN Vitals/I & O Vital Sign - Last 24 Hours 06/30/16 06/30/16 06/30/16 06/30/16 19:00 20:00 21:07 23:00 Temp 97.9 98.8 97.9 98.8 Pulse 93 95 Resp 20 20 B/P 95/64 88/56 Pulse Ox 93 93 92 O2 Delivery Room Air Nasal Cannula Nasal Cannula Nasal Cannula O2 Flow Rate 2.0 2.0 07/01/16 07/01/16 07/01/16 07/01/16 00:04 03:50 06:18 08:03 Pulse Ox 92 92 92 92 O2 Delivery Nasal Cannula Nasal Cannula Nasal Cannula Nasal Cannula O2 Flow Rate 2.0 2.0 2.0 2.0 07/01/16 07/01/16 07/01/16 07/01/16 08:21 09:00 10:00 10:53 Temp 97.7 97.7 97.7 97.7 Pulse 88 86 Resp 18 18 B/P 98/62 122/77 Pulse Ox 97 97 97 93 O2 Delivery Room Air Nasal Cannula Nasal Cannula Nasal Cannula O2 Flow Rate 2.0 2.0 1.5 07/01/16 07/01/16 07/01/16 11:53 12:53 14:47 Temp 98.1 98.1 Pulse 103 Resp 18 B/P 115/75 Pulse Ox 97 97 91 O2 Delivery Nasal Cannula Nasal Cannula Room Air O2 Flow Rate 2.0 2.0 Intake and Output 06/30/16 06/30/16 07/01/16 15:00 23:00 07:00 Intake Total 640 ml 930 ml 350 ml Output Total 850 ml 1700 ml Balance 640 ml 80 ml -1350 ml FREEDOM MCDOWELL MD Jul 01, 2016 15:23
--- NOTE | 2016-07-01 18:46 | PDOC ---
Provider Note Provider Note Her pain is very well controlled on scheduled narcotics and anxiolytics. She wants to keep it that way because she has been able to walk down the [place]. She complained of sore throat. She also complained of coughing up a small amount of blood the size of a nickel. She said she showed it to the nurse. Lungs are clear. Mouth and throat show no signs of thrush. Discussed with and antibiotics have been discontinued. She is not on the OR schedule for cystoscopy tomorrow and will discuss with Dr. Calles. Consult pulmonary with a history of hemoptysis and history of lung cancer. Consider discharge tomorrow evening. SARAH LOPEZ MD Jul 01, 2016 18:46
[2016-07-01 19:00] VITALS: BP 91/61
[2016-07-01 23:00] VITALS: BP 109/61
[2016-07-02] MEDS: DIAZEPAM 5 MG TABLET PO SCH ×4 (00:01→17:53)
[2016-07-02] MEDS: OXYCODONE IR 30 MG TABLET. PO SCH ×7 (00:02→20:53)
[2016-07-02 03:00] VITALS: BP 86/63
[2016-07-02 07:00] VITALS: BP 98/62
[2016-07-02] MEDS: DOCUSATE SODIUM 100 MG CAPSULE. PO SCH ×2 (07:00→17:53)
[2016-07-02 09:13] LABS: PROTHROMBIN TIME PATIENT 12.5 SEC (11.7-14.0)
[2016-07-02] MEDS ORDERED: IOHEXOL 300 MG/ML 50 ML VIAL. ONE (09:26)
--- NOTE | 2016-07-02 10:04 | RAD ---
Chest, 2 views, 07/02/2016: History: Hemoptysis Comparison is made to a study from 06/28/2016. A right Port-A-Cath extends into the superior aspect of the right atrium. The heart size is normal. There are surgical clips projected over the left hilar region. Emphysematous changes are present in the upper lobes. Mild linear opacities in the lower chest bilaterally are probably scars. No pulmonary consolidation is seen. There is unchanged blunting of the left lateral costophrenic angle, no significant volume of pleural fluid is evident on the lateral view. IMPRESSION: 1. Emphysema with parenchymal scarring. 2. Unchanged blunting of the left lateral costophrenic angle compatible with scarring versus a tiny amount of pleural fluid. 3. No new abnormality is detected.
--- NOTE | 2016-07-02 10:31 | PDOC ---
PROGRESS NOTES Subjective Subjective No new complaints. Objective Objective Vital Signs Date Time Temp Pulse Resp B/P Pulse Ox O2 Delivery O2 Flow Rate FiO2 07/02/16 09:52 95 Nasal Cannula 2.0 07/02/16 07:00 97.9 83 18 98/62 97.9 Intake and Output 07/02/16 06:59 Intake Total 960 ml Balance 960 ml Intake Oral 960 ml Physical Exam Physical Exam She is alert and comfortable and despite continued pain she is getting up and walking with flat form roller walker. Plan Plan of Care Waiting for lumbar corset and home when medically stable. Comment Review of Relevant I have reviewed the following items kristen (where applicable) has been applied. Labs Laboratory Tests Test 06/30/16 19:30 07/01/16 04:00 07/01/16 13:43 07/02/16 08:40 Cortisol PM Sample 4.7ug/dL (2.3-11.9) Sodium Level 141mmol/L (136-145) Potassium Level 4.0mmol/L (3.5-5.1) Chloride Level 101mmol/L (98-107) Carbon Dioxide Level 34mmol/L (21-32) Anion Gap 6 (6-14) Blood Urea Nitrogen 12mg/dL (7-20) Creatinine 0.6mg/dL (0.6-1.0) Estimated GFR (Cockcroft-Gault) 105.0 BUN/Creatinine Ratio 20 (6-20) Glucose Level 76mg/dL (70-99) Calcium Level 8.6mg/dL (8.5-10.1) Magnesium Level 2.1mg/dL (1.8-2.4) Total Bilirubin 0.2mg/dL (0.2-1.0) Aspartate Amino Transf (AST/SGOT) 16U/L (15-37) Alanine Aminotransferase (ALT/SGPT) 30U/L (14-59) Alkaline Phosphatase 47U/L (46-116) Total Protein 5.8g/dL (6.4-8.2) Albumin 2.9g/dL (3.4-5.0) Albumin/Globulin Ratio 1.0 (1.0-1.7) Thyroid Stimulating Hormone (TSH) 1.460uIU/mL (0.358-3.74) Lactic Acid Level 0.8mmol/L (0.4-2.0) Vitamin B12 Level 1018pg/mL (247-911) Prothrombin Time 12.5SEC (11.7-14.0) Prothromb Time International Ratio 1.0 (0.8-1.1) Laboratory Tests Test 07/01/16 13:43 07/02/16 08:40 Lactic Acid Level 0.8mmol/L (0.4-2.0) Vitamin B12 Level 1018pg/mL (247-911) Prothrombin Time 12.5SEC (11.7-14.0) Prothromb Time International Ratio 1.0 (0.8-1.1) Microbiology 06/28/16 Blood Culture - Preliminary, Resulted NO GROWTH AFTER 4 DAYS 06/27/16 Urine Culture - Final, Complete 06/27/16 Urine Culture Result 1 (ASHLI) - Final, Complete Medications Current Medications Fentanyl Citrate (Fentanyl 2ml Vial) 50 mcg 1X ONCE IV Last administered on 17:22; Start 06/27/16 at 16:45; Stop 06/27/16 at 16:46; Status DC Phenazopyridine HCl 200 mg 200 mg PRN Q6HRS PRN PO URINARY PAIN Last administered on 06/28/16 16:51; Start 06/27/16 at 16:45; Stop 06/28/16 at 22:32; Status DC Ceftriaxone Sodium 1 gm/ Sodium Chloride 50 ml @ 100 mls/hr Q24H IV Last administered on 06/27/16 17:33; Start 06/27/16 at 17:00; Stop 06/28/16 at 08:58; Status DC Fentanyl Citrate 30 ml @ 0 mls/hr CONT PRN PRN IV PROTOCOL Last administered on 06/27/16 19:06; Start 06/27/16 at 17:30; Stop 06/28/16 at 14:34; Status DC Sodium Chloride (Iv Sodium Chloride 0.9% 1000ml Bag) 1,000 ml @ 100 mls/hr Q10H IV Last administered on 06/28/16 20:16; Start 06/27/16 at 18:45; Stop at 22:31; Status DC Alprazolam (Xanax) 1 mg PRN Q6HRS PRN PO ANXIETY / AGITATION Last administered on 06/28/16 04:23; Start 06/27/16 at 21:30; Stop 06/28/16 at 22:32; Status DC Docusate Sodium (Colace) 100 mg [id number] PO Last administered on 07/01/16 17:29; Start 06/28/16 at 07:00 Ondansetron HCl (Zofran Odt) 8 mg PRN Q6HRS PRN PO NAUSEA/VOMITING, 2ND CHOICE Last administered on 06/28/16 20:15; Start 06/27/16 at 21:30 Zolpidem Tartrate (Ambien) 5 mg PRN QHS PRN PO INSOMNIA, MAY REPEAT IN 1HR Last administered on 06/30/16 21:58; Start 06/27/16 at 21:30 Oxycodone HCl (Roxicodone) 30 mg PRN Q4HRS PRN PO PAIN Last administered on 06/28 21:16; Start 06/27/16 at 21:30; Stop 06/28/16 at 22:32; Status DC Fentanyl Citrate (Fentanyl 2ml Vial) 50 mcg 1X ONCE IV Last administered on 08:40; Start 06/28/16 at 09:00; Stop 06/28/16 at 09:01; Status DC Metoprolol Tartrate (Lopressor) 25 mg 1X ONCE PO ; Start 06/28/16 at 09:00; Stop 06/28/16 at 09:01; Status DC Acetaminophen (Tylenol) 650 mg PRN Q6HRS PRN PO MILD PAIN / TEMP Last administered on 06/29/16 03:46; Start 06/28/16 at 08:30 Vancomycin HCl 1 each 1 each PRN DAILY PRN MC SEE COMMENTS Last administered on 06/28/16 13:25; Start 06/28/16 at 09:00; Stop 06/28/16 at 14:12; Status DC Meropenem 500 mg/ Sodium Chloride 50 ml @ 100 mls/hr Q6HRS IV Last administered on 07/01/16 06:18; Start 06/28/16 at 09:30; Stop 07/01/16 at 14:39; Status DC Azithromycin 250 ml @ 250 mls/hr 1X ONCE IV Last administered on 06/28/16 11: 13; Start 06/28/16 at 09:30; Stop 06/28/16 at 10:29; Status DC Vancomycin HCl/ Sodium Chloride (Iv Sodium Chloride 0.9% 500ml Bag) 500 ml @ 250 mls/hr 1X ONCE IV Last administered on 06/28/16 12:29; Start 06/28/16 at 10 :00; Stop 06/28/16 at 11:59; Status DC Vancomycin HCl 1 each 1 each 1X ONCE MC ; Start 06/29/16 at 23:30; Stop 06/29/16 at 23:30; Status DC Vancomycin HCl/ Sodium Chloride (Iv Sodium Chloride 0.9% 250ml) 250 ml @ 166.667 mls/hr Q12H IV ; Start 06/29/16 at 00:00; Stop 06/29/16 at 00:00; Status DC Acetaminophen (Tylenol) 500 mg PRN Q6HRS PRN PO MILD PAIN / TEMP; Start at 14:15; Stop 06/30/16 at 16:51; Status DC Linezolid (Zyvox) 600 mg BID PO Last administered on 07/01/16 08:03; Start 06/28 at 14:30; Stop 07/01/16 at 14:39; Status DC Alprazolam (Xanax) 1 mg PRN QID PRN PO ANXIETY / AGITATION; Start 06/28/16 at 14 :15; Stop 06/28/16 at 22:32; Status DC Ondansetron HCl (Zofran Odt) 4 mg PRN Q8HRS PRN PO NAUSEA, 1ST CHOICE; Start at 14:15 Oxycodone HCl (Roxicodone) 15 mg PRN Q4HRS PRN PO PAIN; Start 06/28/16 at 14:15 ; Stop 06/28/16 at 14:34; Status DC Docusate Sodium (Colace) 200 mg PRN BID PRN PO CONSTIPATION; Start 06/28/16 at 21:00 Non-Formulary Medication 10 mg HS PRN PO INSOMNIA; Start 06/28/16 at 14:15; Status UNV Fentanyl Citrate (Fentanyl 2ml Vial) 50 mcg PRN Q2HR PRN IV PAIN Last administered on 06/29/16 10:06; Start 06/28/16 at 14:45; Stop 06/29/16 at 11:13; Status DC Morphine Sulfate 4 mg PRN Q2HR PRN IV PAIN; Start 06/28/16 at 16:30; Stop at 22:32; Status DC Lidocaine (Lidoderm) 1 patch DAILY TD Last administered on 06/28/16 20:16; Start 06/28/16 at 19:00; Stop 06/28/16 at 22:32; Status DC Diazepam (Valium) 5 mg 1X ONCE PO Last administered on 06/28/16 22:53; Start 06/28/16 at 22:45; Stop 06/28/16 at 22:46; Status DC Diazepam (Valium) 5 mg PRN Q6HRS PRN IV SEIZURES; Start 06/28/16 at 22:30; Stop 06/29/16 at 11:13; Status DC Diazepam 5 mg 5 mg Q8H PO ; Start 06/28/16 at 22:30; Stop 06/28/16 at 22:32; Status DC Amino Acids/ Electrolytes/ Dextrose (Clinimix E 4.25%-5% Solution) 1,000 ml @ 80 mls/hr [id number] IV Last administered on 07/01/16 06:19; Start 06/28/16 at 23: 00; Stop 07/01/16 at 16:32; Status DC Oxycodone HCl (Roxicodone) 30 mg Q4HRS PO Last administered on 07/02/16 07:59 ; Start 06/29/16 at 12:00 Diazepam (Valium) 5 mg Q6HRS PO Last administered on 07/02/16 00:01; Start 06/29/16 at 12:00 Belladonna Alkaloids/Opium (B & O) 1 supp PRN Q12HR PRN [place] PAIN Last administered on 07/01/16 09:00; Start 06/29/16 at 11:15 Phenazopyridine HCl (Pyridium) 200 mg PRN TID PRN PO URINARY PAIN Last administered on 06/30/16 18:14; Start 06/29/16 at 16:00 Fentanyl Citrate (Fentanyl 2ml Vial) 50 mcg PRN Q2HR PRN IV PAIN Last administered on 07/01/16 06:18; Start 06/29/16 at 19:15 Iohexol (Omnipaque 300 Mg/ml) 50 ml STK-MED ONCE .ROUTE ; Start 07/02/16 at 09: 26; Stop 07/02/16 at 09:27; Status DC Active Scripts Active Reported Ambien (Zolpidem Tartrate) 10 Mg Tablet 10 Mg PO HS PRN Zofran Odt (Ondansetron) 4 Mg Tab.rapdis 1 Tab SL Q8HRS Oxycodone Hcl 30 Mg Tablet 15 Mg PO PRN Q4HRS PRN Docusate Sodium 100 Mg Tablet 200 Mg PO BID PRN Alprazolam 1 Mg Tablet 1 Tab PO QID PRN Vitals/I & O Vital Sign - Last 24 Hours 07/01/16 07/01/16 07/01/16 07/01/16 10:53 11:53 14:47 16:14 Temp 97.7 98.1 97.7 98.1 Pulse 86 103 Resp 18 18 B/P 122/77 115/75 Pulse Ox 93 97 91 91 O2 Delivery Nasal Cannula Nasal Cannula Room Air Nasal Cannula O2 Flow Rate 1.5 2.0 2.0 07/01/16 07/01/16 07/01/16 07/01/16 19:00 20:00 20:25 23:00 Temp 97.5 97.9 97.5 97.9 Pulse 75 101 Resp 16 20 16 B/P 91/61 109/61 Pulse Ox 93 93 93 O2 Delivery Room Air Non-Rebreather Nasal Cannula Room Air O2 Flow Rate 2.0 07/02/16 07/02/16 07/02/16 07/02/16 00:02 01:02 03:00 04:47 Temp 98.8 98.8 Pulse 89 Resp 20 20 16 20 B/P 86/63 Pulse Ox 93 96 96 O2 Delivery Room Air O2 Flow Rate 2.0 2.0 07/02/16 07/02/16 07/02/16 07/02/16 07:00 07:40 07:59 09:52 Temp 97.9 97.9 Pulse 83 Resp 18 B/P 98/62 Pulse Ox 95 95 O2 Delivery Room Air Nasal Cannula Nasal Cannula Nasal Cannula O2 Flow Rate 2.0 2.0 2.0 Intake and Output 07/01/16 07/01/16 07/02/16 14:59 22:59 06:59 Intake Total 360 ml 0 ml 600 ml Balance 360 ml 0 ml 600 ml SAMREEN HERBERT MD Jul 02, 2016 10:31
[2016-07-02] MEDS ORDERED: IOHEXOL 300 MG/ML 50 ML VIAL. IJ ONE (10:45)
[2016-07-02 11:00] VITALS: BP 101/67
[2016-07-02] MEDS ORDERED: ALTEPLASE IV ONE (11:00)
[2016-07-02] MEDS ORDERED: NORMAL SALINE IV ONE (11:00)
--- NOTE | 2016-07-02 11:00 | PDOC ---
Exam Radioactivity Technician Radioactivity Technician Trevor Professor Of Exercise Science Professor Of Exercise Science [place] Pre-Procedure Diagnosis Pre-Procedure Diagnosis 51 YO female with pst h/o met lung cancer. She has a nonfunctioning slim Power Port. Post-Procedure Diagnosis Post-Procedure Diagnosis Slim Power Port is intact, and lies in good position. Slim Power Port flushes, but does not aspirate. Procedure Performed Procedure Performed Fluoro guided Slim Power Port check Type of Anesthesia Type of Anesthesia None Estimated Blood Loss EBL: None Condition of Patient Condition of Patient Stable. No apparent complication. Disposition Disposition From IR return to [phone]. Have ordered t-PA infusion thru Port. Continue NPO until after t-PA infusion. If t-PA infusions fails to restores ability to aspirate, then will return to IR for Port replacement. Full report to follow. YOSELYN WASHINGTON MD Jul 02, 2016 11:00
[2016-07-02 15:00] VITALS: BP 107/76
--- NOTE | 2016-07-02 15:57 | RAD ---
Fluoroscopy guided power port check Indication: 51-year-old female with an indwelling right IJ slim power port, which is nonfunctioning. Fluoroscopy guided power port check has been requested. Fluoroscopy time: 0.7 minutes Kerma-area Product: 5 Gycm2 Contrast material: 10 cc Omnipaque 300 Procedure: Informed consent was obtained from the patient. She was placed supine on the CT scanner. Preliminary fluoroscopic evaluation revealed an intact right IJ tunneled slim power port, with its tip projected at mid right atrium. Using aseptic technique, the slim power port was accessed utilizing a Bañuelos needle. Heparinized saline was then gently injected through the slim power port, without significant resistance. A small amount of Omnipaque 300 was then injected through the Bañuelos needle, producing contrast opacification of the slim power port body and catheter, which appeared patent, without contrast extravasation to suggest fracture or perforation. A more forceful hand-injection of Omnipaque 300 was then performed, and DSA images were obtained over chest. Those images confirmed the patency of the slim power port, without pericatheter thrombus or fibrin sheath. However, blood cannot be aspirated through the slim power port. Patient tolerated the procedure well without apparent complication. She was returned to her hospital room with the slim power port accessed. Infusion of 5 mg t-PA in 50 cc normal saline was requested over 30 minutes. If the t-PA infusion fails to restore ability to aspirate, return to the angiography suite for port replacement is recommended. Impression: 1. Right IJ tunneled slim power port is intact, is patent, flushes easily, and lies in satisfactory position. 2. The right IJ tunneled slim power port aspirates poorly. Infusion of 5 mg t-PA in 50 cc normal saline over 30 minutes has been requested. If the t-PA infusion fails to restore ability to aspirate, power port replacement is recommended.
[2016-07-02 19:00] VITALS: BP 103/82
[2016-07-02] MEDS ORDERED: HEPARIN PF 500 UNIT/5 ML DISP.SYRIN. IV ONE (21:00)
--- NOTE | 2016-07-03 03:10 | DS ---
DATE OF DISCHARGE: 07/02/2016 HOSPITAL COURSE: This is a 51-year-old white female who was seen in the office with hematuria. She did pass urine and the urine was fairly pink. She had had an episode of urinary tract infection because she called in with symptoms. She was given a three-day course of Cipro. She was not febrile. However, she was in very severe pain. She was thus hospitalized. She was given IV antibiotics under the guidance of Dr. Jorge Coronado. The urine culture came back as no growth. The urinalysis showed 20-30 rbcs [address] scan of the abdomen and pelvis showed no evidence of urinary stone. There was an irregular appearance to the urinary bladder, which is nonspecific. Cystitis was to be considered. There was also right adrenal adenoma. She has had a left adrenalectomy in the past. Dr. Calles saw her and thought that since she had no growth and since the hematuria had resolved that she could go home. If her symptoms recur, she will contact him and a cystoscopy will be done as an outpatient. She was seen by physical therapy who thought that she did not need any physical therapy. She is already scheduled for occupational therapy for her recent fractured wrist. She underwent a sonogram. The right kidney measure 10.2 cm and the left kidney measured 10.1 cm. There was no hydronephrosis or renal mass. There is no abnormal perinephric process. The CT abdomen had shown emphysematous changes in the lungs. The left lower lobe demonstrated nonspecific ground glass opacity and a mild amount of consolidation could be atelectasis versus air space disease. She was given IV antibiotics. At one time, she thought she had hemoptysis. There was no record of it. Consultation was requested of Dr. Mae on 07/01/2016 at 20:13. However, on 07/02/2016 at 8:00 p.m., Dr. Mae had not seen her. The patient felt that it was not necessary because she had had no further hemoptysis. Thus rather than keep her on another day, she was discharged. During this time, her Port-A-Cath got clogged. TPN was given by interventional radiologist and dysfunctioning again. She was seen by Dr. Gamez. He ordered a brace. The patient was very happy with the brace. She was given B and O suppositories while in the hospital. She felt that she could do without it. She was thus discharged. FINAL DIAGNOSES: 1. Hematuria, probably secondary to cystitis. 2. Questionable irregularity of the bladder to undergo cystoscopy as per Dr. Calles, if her symptoms recur. 3. Right adrenal adenoma. 4. Possible pneumonia that seemed to improve with no further cough or hemoptysis at the time of discharge. The chest x-ray at the time of discharge showed emphysema with parenchymal scarring and there is ____ blunting of the left lateral costophrenic angle compatible with a very tiny amount of pleural fluid. She has had a left upper lobectomy. There was no new abnormality noted. HOMEGOING INSTRUCTIONS: 1. Activities to tolerance. 2. Continue with the ____. 3. Occupational therapy for the left wrist fracture. 4. Alprazolam p.r.n. 5. Oxycodone 30 mg p.r.n. She will call the office if she needs a B and O suppositories again. SARAH LOPEZ MD DR: MORRIS/lida JOB#: [id number] / [id number]
== END 2016-07-02 22:12 | disposition home or self-care (01) | DRG 871 ==
LOC: 5 NORTH 16:10
PROVIDERS: ADMIT Specialist; ATTEND Specialist
DX: A41.9 Sepsis, unspecified organism (principal); J18.9 Pneumonia, unspecified organism; N30.91 Cystitis, unspecified with hematuria; R65.10 Systemic inflammatory response syndrome (SIRS) of non-infectious origin without acute organ dysfunction; M70.62 Trochanteric bursitis, left hip; D35.01 Benign neoplasm of right adrenal gland; F32.9 Major depressive disorder, single episode, unspecified; G89.29 Other chronic pain; I25.10 Atherosclerotic heart disease of native coronary artery without angina pectoris; I48.91 Unspecified atrial fibrillation; M77.9 Enthesopathy, unspecified; N32.89 Other specified disorders of bladder; S33.5XXA Sprain of ligaments of lumbar spine, initial encounter; Z80.51 Family history of malignant neoplasm of kidney; Z82.49 Family history of ischemic heart disease and other diseases of the circulatory system; Z85.118 Personal history of other malignant neoplasm of bronchus and lung; Z87.440 Personal history of urinary (tract) infections; I25.2 Old myocardial infarction; Z90.49 Acquired absence of other specified parts of digestive tract; Z90.710 Acquired absence of both cervix and uterus; Z92.21 Personal history of antineoplastic chemotherapy; J43.9 Emphysema, unspecified
CPT/HCPCS: 36415; 36598; 71020; 72148; 74176; 76770; 80048; 80053; 81001; 82533; 82607; 83605; 83735; 84134; 84443; 85027; 85610; 85651; 87040; 87086; 87804; J0456; J0696; J2185; J2997; J3010; J3370; J3490; J7030; J7040; Q0162; Q9967